=== PATIENT | female | born 1950 | race Caucasian/White ===

== ENCOUNTER 2016-07-19 18:02 | Emergency (ER) | payer BC ==
[~2016-07-19] VITALS: Ht 152.4 cm; Wt 55.2 kg
[2016-07-19 18:20] VITALS: TEMP 37.1; Ht 152.4 cm; Wt 55.2 kg
[2016-07-19] MEDS ORDERED: SODIUM CHLORIDE 0.9% 1000ML 1,000 ML IV STA (19:24)
[2016-07-19] MEDS ORDERED: KETOROLAC TROMETHAMINE 30 MG/ML VIAL IV STA (20:18)
[2016-07-19] MEDS ORDERED: DICYCLOMINE HCL 10 MG/ML 2 ML AMP IM ONE (20:30)
[2016-07-19 20:32] LABS: BASO % 0.2 %; BASO ABS # 0.02 K/uL (0-0.2); COMPLETE YES; EOS % 0.8 %; HEMATOCRIT 42.9 % (37-47); IG% 0.3 %; LYMPH % 22.7 %; MEAN CELL VOLUME 86.5 fL (80-100); MEAN CORPUSCULAR HEMOGLOBIN 29.4 pg (25-34); MEAN PLATELET VOLUME 9.9 fL (7.4-10.4); MONO % 6.5 %; NEUT % 69.5 %; PLATELET COUNT 281 K/uL (130-400); RED BLOOD COUNT 4.96 M/uL (4.2-5.4); WHITE BLOOD COUNT 10.57 K/uL (4.8-10.8)
--- NOTE | 2016-07-19 20:38 | EMERGENCY ROOM VISIT NOTE ---
History First contact with patient: 19:49 Chief Complaint: ABDOMINAL PAIN Stated Complaint: ABDOMINAL PAIN- PHYSICIAN REFERRED Nursing Triage Summary: Pt at doctor's office today and had an abdominal x-ray showing a "blockage.'' Pt sent here for a CT scan and eval. Pt hasn't had BM for 3 days and abnormal bowel movements for seven weeks. History of Present Illness The patient is a 65 year old female with Hx of 1 month of alternating diarrhea/ constipation who presents to the Emergency Room with abdominal pain. Patient complains of 24 hr hx of abdominal pain. Pain has been constant but comes with episodic waves of intensity ranging from 5-8/10. She also report associated nausea, chills dec's appetite. She went in to to [facility] clinic for evaluation and saw Dr. Pacheco. Initially, Dr. Pacheco was concerned about potential ovarian pathology and scheduled Trans-vaginal U/S for tmr, however after getting an abdominal XR, significant stool retention was noted. She was then sent over for ED for further evaluation. Review of Systems See HPI for pertinent positives & negatives. A total of 10 systems reviewed and were otherwise negative. Past Medical/Surgical History Medical Problems: (1) Asthma Surgical Problems: (1) S/P dilation and curettage (2) S/P hysterectomy (3) S/P tonsillectomy (4) S/P tubal ligation Social History Smoking Status: Never Smoker Marital Status: Housing Status: lives with family Current/Historical Medications Scheduled Budesonide/Formoterol Fumarate (Symbicort 160/4.5 Inhaler ), 2 PUFFS INH BID Calcium/Vitamin D (Os-Jong 500 Plus D), 1 TAB PO DAILY Levothyroxine Sodium (Levothyroxine Sodium), 1 TAB PO DAILY Multivitamin (Multivitamin), 1 TAB PO DAILY Scheduled PRN Sumatriptan Succinate (Imitrex), 100 MG PO PRN PRN for Migraine Allergies Coded Allergies: No Known Allergies (Unverified , 07/19/16) Physical Exam Vital Signs Date Time Temp Pulse Resp B/P Pulse Ox O2 Delivery O2 Flow Rate FiO2 07/19/16 23:21 106 20 102/84 96 Room Air 07/19/16 21:01 85 20 130/83 07/19/16 18:20 37.1 111 18 144/84 99 Room Air Physical Exam GENERAL: alert, well appearing, well nourished, no distress, non-toxic EYE EXAM: normal conjunctiva, PERRL and EOM's grossly intact NECK: supple, no nuchal rigidity, no adenopathy, non-tender LUNGS: Clear to auscultation. Normal chest wall mechanics HEART: no murmurs, S1 normal and S2 normal ABDOMEN: abdomen soft, LLQ tenderness to palpation, no guarding, no rigidity BACK: Back is symmetrical on inspection and there is no deformity, no midline tenderness, no CVA tenderness. SKIN: no rashes and no bruising UPPER EXTREMITIES: upper extremities are grossly normal. LOWER EXTREMITIES: No pitting edema. Medical Decision & Procedures ER Provider Diagnostic Interpretation: [~ rep ct add3]] ABDOMEN AND PELVIS CT WITHOUT CONTRAST CT DOSE: 259.81 mGy.cm HISTORY: lower abdominal pain, eval for obstruction TECHNIQUE: Multiaxial CT images of the abdomen and pelvis were performed without contrast. COMPARISON STUDY: KUB 07/19/2016. FINDINGS: The lung bases are clear. Small hiatus hernia. Small bilateral fat-containing Bochdalek hernias. The unenhanced liver, spleen, gallbladder, pancreas, and adrenal glands are unremarkable. No retroperitoneal lymphadenopathy. The uterus is surgically absent. A pessary device is noted. The bladder is not well-distended but appears unremarkable. No renal stones or hydronephrosis. Normal appendix. Trace pelvic free fluid. Suboptimal evaluation for bowel pathology due to the lack of intravenous and oral contrast. Moderate to large amount well-formed stool seen throughout the colon. A few colonic diverticula. No definite bowel wall thickening or obstruction. IMPRESSION: 1. No definite bowel wall thickening or obstruction. 2. Normal appendix. 3. Moderate to large amount of well-formed stool seen within the colon. Electronically signed by: Pilo Chaudhary M.D. 07/19/2016 9:04 PM Laboratory Results 07/19/16 20:20 Red Blood Count 4.96, Mean Corpuscular Volume 86.5, Mean Corpuscular Hemoglobin 29.4, Mean Corpuscular Hemoglobin Concent 34.0, Mean Platelet Volume 9.9, Neutrophils (%) (Auto) 69.5, Lymphocytes (%) (Auto) 22.7, Monocytes (%) (Auto) 6.5, Eosinophils (%) (Auto) 0.8, Basophils (%) (Auto) 0.2, Neutrophils # (Auto) 7.35, Lymphocytes # (Auto) 2.40, Monocytes # (Auto) 0.69, Eosinophils # (Auto) 0.08, Basophils # (Auto) 0.02 07/19/16 20:20 Test 07/19/16 20:20 White Blood Count 10.57 K/uL (4.8-10.8) Red Blood Count 4.96 M/uL (4.2-5.4) Hemoglobin 14.6 g/dL (12.0-16.0) Hematocrit 42.9 % (37-47) Mean Corpuscular Volume 86.5 fL (80-100) Mean Corpuscular Hemoglobin 29.4 pg (25-34) Mean Corpuscular Hemoglobin Concent 34.0 g/dl (32-36) Platelet Count 281 K/uL (130-400) Mean Platelet Volume 9.9 fL (7.4-10.4) Neutrophils (%) (Auto) 69.5 % Lymphocytes (%) (Auto) 22.7 % Monocytes (%) (Auto) 6.5 % Eosinophils (%) (Auto) 0.8 % Basophils (%) (Auto) 0.2 % Neutrophils # (Auto) 7.35 K/uL (1.4-6.5) Lymphocytes # (Auto) 2.40 K/uL (1.2-3.4) Monocytes # (Auto) 0.69 K/uL (0.11-0.59) Eosinophils # (Auto) 0.08 K/uL (0-0.5) Basophils # (Auto) 0.02 K/uL (0-0.2) RDW Standard Deviation 41.7 fL (36.4-46.3) RDW Coefficient of Variation 13.2 % (11.5-14.5) Immature Granulocyte % (Auto) 0.3 % Immature Granulocyte # (Auto) 0.03 K/uL (0.00-0.02) Anion Gap 11.0 mmol/L (3-11) Est Creatinine Clear Calc Drug Dose 45.7 ml/min Estimated GFR () 71.5 Estimated GFR (Non- 61.7 BUN/Creatinine Ratio 26.4 (10-20) Calcium Level 9.4 mg/dl (8.5-10.1) Total Bilirubin 0.7 mg/dl (0.2-1) Direct Bilirubin 0.1 mg/dl (0-0.2) Aspartate Amino Transf (AST/SGOT) 27 U/L (15-37) Alanine Aminotransferase (ALT/SGPT) 32 U/L (12-78) Alkaline Phosphatase 86 U/L (45-117) Total Protein 7.8 gm/dl (6.4-8.2) Albumin 3.7 gm/dl (3.4-5.0) Lipase 102 U/L (73-393) Medications Administered Medications (Trade) Dose Ordered Sig/Amanda Route Start Time Stop Time Status Last Admin Dose Admin Sodium Chloride (Nss 1000ml) 1,000 ml @ 125 mls/hr Q8H STAT IV 07/19/16 19:24 07/20/16 03:23 07/19/16 20:19 125 MLS/HR Ketorolac Tromethamine (Toradol Inj) 10 mg NOW STAT IV 07/19/16 20:18 07/19/16 20:20 DC 07/19/16 20:28 10 MG Dicyclomine HCl (Bentyl Inj) 20 mg NOW ONCE IM 07/19/16 20:30 07/19/16 20:31 DC 07/19/16 20:29 20 MG Fentanyl Citrate (Fentanyl Inj) 50 mcg NOW STAT IV 07/19/16 21:41 07/19/16 21:42 DC 07/19/16 22:08 50 MCG Ondansetron HCl (Zofran Inj) 4 mg NOW STAT IV 07/19/16 21:41 07/19/16 21:42 DC 07/19/16 22:08 4 MG Lorazepam (Ativan Inj) 0.5 mg NOW STAT IV 07/19/16 22:12 07/19/16 22:13 DC 07/19/16 22:33 0.5 MG Medical Decision Differential diagnoses includes but is not limited to gastritis, peptic ulcer disease, GERD, gallbladder disease, pancreatitis, small bowel obstruction, acute coronary syndrome, pericarditis, ischemic bowel, irritable bowel disease, irritable bowel syndrome, appendicitis, diverticulitis, malignancy, hernia, urinary tract infection, torsion, , perforation, trauma, infectious. 65 yo F with month long hx of alternating diarrhea/constipation p/w 24 hr hx of constant abdominal pain. afebrile, VSS, LLQ tenderness on exam. Previous abd xray today showing stool retention CT showing Moderate to large amount of well- formed stool seen within the colon. Constipation -Given 50mcg Fentanyl, IV Toradol 10 mg, 20 mg Bentyl -IV fluids 1L -Given Soap suds enema -Upon reevaluation, the patient is feeling better abdominal pain improved , but no significant BM in ED discussed the findings and the treatment plan with the patient. She verbalizes agreement and understanding. She was discharged home with PCP followup with Dr. Sanon -Discharged with Miralax, Mg Citrate Impression Primary Impression: Fecal impaction Additional Impression: Abdominal pain Departure Information Referrals Manuel Sanon MD (PCP) Patient Instructions My [facility] Resident Tracking Resident Involvement: Resident Care Provided Care Provided: Adult ED Problem Qualifiers Additional Impression: Abdominal pain Abdominal location: lower abdomen, unspecified Qualified Codes: R10.30 - Lower abdominal pain, unspecified
[2016-07-19 20:55] LABS: BUN/CREATININE RATIO 26.4 (10-20); CALCIUM 9.4 mg/dl (8.5-10.1); CREATININE 0.97 mg/dl (0.60-1.20); POTASSIUM 3.9 mmol/L (3.5-5.1)
--- NOTE | 2016-07-19 21:05 | DIAGNOSTIC IMAGING REPORT ---
ABDOMEN AND PELVIS CT WITHOUT CONTRAST CT DOSE: 259.81 mGy.cm HISTORY: lower abdominal pain, eval for obstruction TECHNIQUE: Multiaxial CT images of the abdomen and pelvis were performed without contrast. COMPARISON STUDY: KUB 07/19/2016. FINDINGS: The lung bases are clear. Small hiatus hernia. Small bilateral fat-containing Bochdalek hernias. The unenhanced liver, spleen, gallbladder, pancreas, and adrenal glands are unremarkable. No retroperitoneal lymphadenopathy. The uterus is surgically absent. A pessary device is noted. The bladder is not well-distended but appears unremarkable. No renal stones or hydronephrosis. Normal appendix. Trace pelvic free fluid. Suboptimal evaluation for bowel pathology due to the lack of intravenous and oral contrast. Moderate to large amount well-formed stool seen throughout the colon. A few colonic diverticula. No definite bowel wall thickening or obstruction. IMPRESSION: 1. No definite bowel wall thickening or obstruction. 2. Normal appendix. 3. Moderate to large amount of well-formed stool seen within the colon. Electronically signed by: Pilo Chaudhary M.D. 07/19/2016 9:04 PM Dictated Date/Time: 07/19/2016 8:54 PM
[2016-07-19] MEDS ORDERED: FENTANYL CITRATE INJ 50 MCG/1 ML 2 ML VIAL IV STA (21:41)
[2016-07-19] MEDS ORDERED: ONDANSETRON INJ 2 MG/ML 2 ML VIAL IV STA (21:41)
[2016-07-19] MEDS ORDERED: LORAZEPAM 2 MG/ML 1 ML VIAL IV STA (22:12)
[2016-07-19] MEDS ORDERED: MAGNESIUM CITRATE 296 ML/BTL PO STA (23:48)
--- NOTE | 2016-07-20 00:10 | EMERGENCY ROOM VISIT NOTE ---
History Report prepared by Annita: Kerline Omalley Under the Supervision of: Dr. Tristen Harrison M.D. First contact with patient: 19:23 Chief Complaint: ABDOMINAL PAIN Stated Complaint: ABDOMINAL PAIN- PHYSICIAN REFERRED Nursing Triage Summary: Pt at doctor's office today and had an abdominal x-ray showing a "blockage.'' Pt sent here for a CT scan and eval. Pt hasn't had BM for 3 days and abnormal bowel movements for seven weeks. History of Present Illness The patient is a 65 year old female who presents to the Emergency Room with complaints of waxing and waning abdominal pain that began one day ago. She currently rates her discomfort as a 6/10 in severity, but states that it has ranged between 5-8/10 in severity. The patient states that for the past month she has intermittently had problems with constipation and diarrhea alternatively. She states that her abdominal pain began 24 hours ago and additionally notes nausea and chills today. The patient additionally notes a decrease in appetite. She states that she went to a walk-in clinic today and had an abdominal x-ray done that showed fecal retention. The patient was sent to the emergency department today for a CT scan. Pt denies LOC, headache, fevers , diaphoresis, visual changes, neck pain, chest pain, breathing difficulties, vomiting, back pain, melena, hematochezia, urinary symptoms, numbness, weakness , lymphadenopathy, rash, or other complaints. Source of History: patient Onset: one day ago Position: abdomen Symptom Intensity: 5-8/10 Timing: waxes/wanes Associated Symptoms: + chills, + diarrhea, + nausea Note: Associated Symptoms: decrease in appetite, constipation Review of Systems See HPI for pertinent positives and negatives. A total of ten systems were reviewed and were otherwise negative. Past Medical & Surgical Medical Problems: (1) Asthma Surgical Problems: (1) S/P dilation and curettage (2) S/P hysterectomy (3) S/P tonsillectomy (4) S/P tubal ligation Family History Cancer Gallbladder disease Hypertension Social History Smoking Status: Never Smoker Smokeless Tobacco Use: No Alcohol Use: occasionally Marital Status: Housing Status: lives with significant other Occupation Status: retired Current/Historical Medications Scheduled Budesonide/Formoterol Fumarate (Symbicort 160/4.5 Inhaler ), 2 PUFFS INH BID Calcium/Vitamin D (Os-Jong 500 Plus D), 1 TAB PO DAILY Levothyroxine Sodium (Levothyroxine Sodium), 1 TAB PO DAILY Multivitamin (Multivitamin), 1 TAB PO DAILY Scheduled PRN Sumatriptan Succinate (Imitrex), 100 MG PO PRN PRN for Migraine Allergies Coded Allergies: No Known Allergies (Unverified , 07/19/16) Physical Exam Vital Signs Date Time Temp Pulse Resp B/P Pulse Ox O2 Delivery O2 Flow Rate FiO2 07/19/16 23:21 106 20 102/84 96 Room Air 07/19/16 21:01 85 20 130/83 07/19/16 18:20 37.1 111 18 144/84 99 Room Air Physical Exam GENERAL: Awake, alert, well-appearing, in no distress HENT: Normocephalic, atraumatic. Oropharynx unremarkable. EYES: Normal conjunctiva. Sclera non-icteric. NECK: Supple. No nuchal rigidity. FROM. No JVD. RESPIRATORY: Clear to auscultation. CARDIAC: Regular rate, normal rhythm. Extremities warm and well perfused. Pulses equal. ABDOMEN: Left lower quadrant tenderness to palpation. Soft, non-distended. No rebound or guarding. No masses. RECTAL: Deferred. MUSCULOSKELETAL: Chest examination reveals no tenderness. The back is symmetrical on inspection without obvious abnormality. There is no CVA tenderness to palpation. No joint edema. LOWER EXTREMITIES: Calves are equal size bilaterally and non-tender. No edema. No discoloration. NEURO: Normal sensorium. No sensory or motor deficits noted. SKIN: No rash or jaundice noted. Medical Decision & Procedures ER Provider Diagnostic Interpretation: CT: Radiology results as stated below per my review and radiologist interpretation ABDOMEN AND PELVIS CT WITHOUT CONTRAST CT DOSE: 259.81 mGy.cm HISTORY: lower abdominal pain, eval for obstruction TECHNIQUE: Multiaxial CT images of the abdomen and pelvis were performed without contrast. COMPARISON STUDY: KUB 07/19/2016. FINDINGS: The lung bases are clear. Small hiatus hernia. Small bilateral fat-containing Bochdalek hernias. The unenhanced liver, spleen, gallbladder, pancreas, and adrenal glands are unremarkable. No retroperitoneal lymphadenopathy. The uterus is surgically absent. A pessary device is noted. The bladder is not well-distended but appears unremarkable. No renal stones or hydronephrosis. Normal appendix. Trace pelvic free fluid. Suboptimal evaluation for bowel pathology due to the lack of intravenous and oral contrast. Moderate to large amount well-formed stool seen throughout the colon. A few colonic diverticula. No definite bowel wall thickening or obstruction. IMPRESSION: 1. No definite bowel wall thickening or obstruction. 2. Normal appendix. 3. Moderate to large amount of well-formed stool seen within the colon. Electronically signed by: Pilo Chaudhary M.D. 07/19/2016 9:04 PM Dictated Date/Time: 07/19/2016 8:54 PM Laboratory Results 07/19/16 20:20 Red Blood Count 4.96, Mean Corpuscular Volume 86.5, Mean Corpuscular Hemoglobin 29.4, Mean Corpuscular Hemoglobin Concent 34.0, Mean Platelet Volume 9.9, Neutrophils (%) (Auto) 69.5, Lymphocytes (%) (Auto) 22.7, Monocytes (%) (Auto) 6.5, Eosinophils (%) (Auto) 0.8, Basophils (%) (Auto) 0.2, Neutrophils # (Auto) 7.35, Lymphocytes # (Auto) 2.40, Monocytes # (Auto) 0.69, Eosinophils # (Auto) 0.08, Basophils # (Auto) 0.02 07/19/16 20:20 Test 07/19/16 20:20 White Blood Count 10.57 K/uL (4.8-10.8) Red Blood Count 4.96 M/uL (4.2-5.4) Hemoglobin 14.6 g/dL (12.0-16.0) Hematocrit 42.9 % (37-47) Mean Corpuscular Volume 86.5 fL (80-100) Mean Corpuscular Hemoglobin 29.4 pg (25-34) Mean Corpuscular Hemoglobin Concent 34.0 g/dl (32-36) Platelet Count 281 K/uL (130-400) Mean Platelet Volume 9.9 fL (7.4-10.4) Neutrophils (%) (Auto) 69.5 % Lymphocytes (%) (Auto) 22.7 % Monocytes (%) (Auto) 6.5 % Eosinophils (%) (Auto) 0.8 % Basophils (%) (Auto) 0.2 % Neutrophils # (Auto) 7.35 K/uL (1.4-6.5) Lymphocytes # (Auto) 2.40 K/uL (1.2-3.4) Monocytes # (Auto) 0.69 K/uL (0.11-0.59) Eosinophils # (Auto) 0.08 K/uL (0-0.5) Basophils # (Auto) 0.02 K/uL (0-0.2) RDW Standard Deviation 41.7 fL (36.4-46.3) RDW Coefficient of Variation 13.2 % (11.5-14.5) Immature Granulocyte % (Auto) 0.3 % Immature Granulocyte # (Auto) 0.03 K/uL (0.00-0.02) Anion Gap 11.0 mmol/L (3-11) Est Creatinine Clear Calc Drug Dose 45.7 ml/min Estimated GFR () 71.5 Estimated GFR (Non- 61.7 BUN/Creatinine Ratio 26.4 (10-20) Calcium Level 9.4 mg/dl (8.5-10.1) Total Bilirubin 0.7 mg/dl (0.2-1) Direct Bilirubin 0.1 mg/dl (0-0.2) Aspartate Amino Transf (AST/SGOT) 27 U/L (15-37) Alanine Aminotransferase (ALT/SGPT) 32 U/L (12-78) Alkaline Phosphatase 86 U/L (45-117) Total Protein 7.8 gm/dl (6.4-8.2) Albumin 3.7 gm/dl (3.4-5.0) Lipase 102 U/L (73-393) Laboratory results reviewed by me Medications Administered Medications (Trade) Dose Ordered Sig/Amanda Route Start Time Stop Time Status Last Admin Dose Admin Sodium Chloride (Nss 1000ml) 1,000 ml @ 125 mls/hr Q8H STAT IV 07/19/16 19:24 07/20/16 03:23 07/19/16 20:19 125 MLS/HR Ketorolac Tromethamine (Toradol Inj) 10 mg NOW STAT IV 07/19/16 20:18 07/19/16 20:20 DC 07/19/16 20:28 10 MG Dicyclomine HCl (Bentyl Inj) 20 mg NOW ONCE IM 07/19/16 20:30 07/19/16 20:31 DC 07/19/16 20:29 20 MG Fentanyl Citrate (Fentanyl Inj) 50 mcg NOW STAT IV 07/19/16 21:41 07/19/16 21:42 DC 07/19/16 22:08 50 MCG Ondansetron HCl (Zofran Inj) 4 mg NOW STAT IV 07/19/16 21:41 07/19/16 21:42 DC 07/19/16 22:08 4 MG Lorazepam (Ativan Inj) 0.5 mg NOW STAT IV 07/19/16 22:12 07/19/16 22:13 DC 07/19/16 22:33 0.5 MG ED Course 1923: The patient was evaluated in room B5. A complete history and physical exam was performed by the family services manager. Ordered Sodium chloride 1000 ml @ 125 mls/hr IV. 2014: The patient was evaluated in room B5. A complete history and physical exam was performed. 2017: Ordered Toradol Inj 10 mg IV. 2029: Ordered Bentyl Inj 20 mg IM. 2139: I reevaluated the patient and she is resting. I discussed the exam findings with her and I discussed the treatment plan. She is going to have an enema. 2140: Ordered Zofran Inj 4 mg IV, Fentanyl Inj 50 mcg IV. 2211: Ordered Ativan Inj 0.5 mg IV. Medical Decision Prior records/ancillary studies reviewed. Triage Nursing notes reviewed and agree them. Additional history obtained from her . The patient's history was concerning for constipation. Differential diagnosis: Etiologies such as functional constipation, impaction, obstruction, volvulus, metabolic abnormality, infection, neurologic, as well as others were entertained. Physical examination findings: As above. ER treatment provided: IV Toradol IM Bentyl IV fentanyl IV Zofran On reassessment the patient felt better. IV Ativan enema 2 with no significant results are the patient cannot hold water. Diagnostics interpreted by me: The labs revealed An unremarkable cc, chemistry panel, LFTs and lipase. Imaging studies: CT scan as above The patient has significant increased fecal load. She notes issues with bowel movements over the last several weeks. Enemas were tried but she was unable to hold the fluid for maximum result. I discussed trying to use magnesium citrate and MiraLAX at home for comfort and the patient and were in agreement. She was given magnesium citrate to go. The patient was seen and examined with Dr. Lino, resident physician. We discussed the case and treatments ordered, reviewed the results, and determine the disposition. Please refer to the resident's note for additional details. I have been directly involved with the management and disposition as well as independently evaluated the patient as documented in this note. The patient did not give a urine sample prior to discharge. By the evaluation outlined above emergent etiologies such as obstruction, volvulus, metabolic abnormality, infection , neurologic, as well as others were deemed relatively unlikely. The patient and were informed about the findings as listed above. All questions were answered and they were pleased with the treatment. Return instructions were outlined and the patient was discharged in stable condition. Referral: The patient was referred back to their primary care physician for follow-up in 2 to 3 days for a recheck of the current condition. The chart was completed utilizing [employer] Speech voice recognition software. Grammatical errors, random word insertions, pronoun errors, and incomplete sentences are an occasional consequence of this system due to software limitations, ambient noise, and hardware issues. Any formal questions or concerns about the content, text, or information contained within the body of this dictation should be directly addressed to the physician for clarification. Impression Primary Impression: Abdominal pain, left lower quadrant Additional Impression: Constipation Scribe Attestation The scribe's documentation has been prepared under my direction and personally reviewed by me in its entirety. I confirm that the note above accurately reflects all work, treatment, procedures, and medical decision making performed by me. Departure Information Dispostion Home / Self-Care Referrals Manuel Sanon MD (PCP) Forms HOME CARE DOCUMENTATION FORM, IMPORTANT VISIT INFORMATION Patient Instructions ED Diet High Fiber, My [facility] Additional Instructions Magnesium citrate, 1/2 bottle for constipation. If you don't have a good bowel movement in 8 hrs then drink the other half. This is available over-the- counter. Rest and drink plenty of fluids. Fleets enema: Use one as instructed. Increase fiber in your diet. Return to the ER for worsening abdominal pain, vomiting, fevers, bloody stools, or as needed. Follow-up with your primary care physician in 2 to 3 days for a recheck of your current condition. Problem Qualifiers
[2016-07-20 00:21] VITALS: BP 129/79; PULSE 98; O2SAT 98
[2016-07-21] MEDS ORDERED: MINEOIL26 PO (15:00)
[2016-07-21] MEDS ORDERED: POLY335019 PO (15:00)
[2016-07-21] MEDS ORDERED: CALC500C70 PO (19:54)
[2016-07-21] MEDS ORDERED: MULT-506 PO (19:54)
[2016-07-21] MEDS ORDERED: LEVO88TA3 PO (19:54)
[2016-07-21] MEDS ORDERED: SYMIN160 INH (19:54)
[2016-07-21] MEDS ORDERED: SUMA100T16 PO (19:54)
[2016-07-21] MEDS ORDERED: DICY10CA12 PO (21:01)
[2016-07-22] MEDS ORDERED: ESTR10TA PV (12:38)
[2016-07-23] MEDS ORDERED: MCRK20 PO (15:12)
[2016-07-23] MEDS ORDERED: POLY335019 PO (15:12)
== END 2016-07-20 00:23 | disposition home or self-care (01) ==
LOC: C.EDB 18:03
DX: R10.32 Left lower quadrant pain (principal); K59.00 Constipation, unspecified; J45.909 Unspecified asthma, uncomplicated; Z80.9 Family history of malignant neoplasm, unspecified; Z83.79 Family history of other diseases of the digestive system; Z82.49 Family history of ischemic heart disease and other diseases of the circulatory system; Z79.899 Other long term (current) drug therapy

== ENCOUNTER → 2016-07-19 | Outpatient (CLI) | payer BC ==
[~2016-07-19] MED LIST: CALC500C70 PO; DICY10CA12 PO; ESTR10TA PV; LEVO88TA3 PO; MCRK20 PO; MINEOIL26 PO; MULT-506 PO; POLY335019 PO; SUMA100T16 PO; SYMIN160 INH
--- NOTE | 2016-07-19 10:06 | DIAGNOSTIC IMAGING REPORT ---
KUB CLINICAL HISTORY: Abdominal pain and bloating COMPARISON STUDY: No previous studies for comparison. FINDINGS: There is no pathologic bowel dilatation. There are no transition zones indicate bowel obstruction. There is moderate fecal retention. A pessary ring is visualized within the pelvis. IMPRESSION: 1. Moderate fecal retention. No conventional radiographic evidence of bowel obstruction. Electronically signed by: Bryant Canchola M.D. 07/19/2016 10:05 AM Dictated Date/Time: 07/19/2016 10:04 AM
== END | disposition home or self-care (01) ==
LOC: C.RAD1850 09:41
PROVIDERS: ATTEND Family Medicine
DX: K59.00 Constipation, unspecified (principal)

== ENCOUNTER 2016-07-21 13:21 | Emergency (ER) | payer BC ==
[~2016-07-21] VITALS: Ht 152.4 cm; Wt 55.6 kg
[2016-07-21 13:30] VITALS: TEMP 37.1; Ht 152.4 cm; Wt 55.6 kg
[2016-07-21] MEDS ORDERED: ONDANSETRON INJ 2 MG/ML 2 ML VIAL IV STA (14:43)
[2016-07-21] MEDS ORDERED: HYDROmorphone INJ 0.5 MG/0.5 ML SYR IV STA ×2 (14:43→18:54)
[2016-07-21] MEDS ORDERED: SODIUM CHLORIDE 0.9% 1000ML 1,000 ML IV STA ×2 (14:43→19:37)
[2016-07-21] MEDS ORDERED: MINEOIL26 PO (15:00)
[2016-07-21] MEDS ORDERED: POLY335019 PO (15:00)
[2016-07-21] MEDS ORDERED: OPTIRAY 320 IV PRN (15:00)
[2016-07-21 15:13] LABS: BASO % 0.2 %; BASO ABS # 0.02 K/uL (0-0.2); COMPLETE YES; EOS % 1.2 %; HEMATOCRIT 41.5 % (37-47); IG% 0.3 %; LYMPH ABS # 2.31 K/uL (1.2-3.4); MEAN CORPUSCULAR HGB CONC 34.5 g/dl (32-36); MEAN PLATELET VOLUME 9.7 fL (7.4-10.4); MONO % 6.5 %; NEUT % 71.8 %; PLATELET COUNT 272 K/uL (130-400); RED BLOOD COUNT 4.77 M/uL (4.2-5.4); WHITE BLOOD COUNT 11.57 K/uL (4.8-10.8)
[2016-07-21 15:34] LABS: ALKALINE PHOSPHATASE 75 U/L (45-117); ALT/SGPT 24 U/L (12-78); AST/SGOT 19 U/L (15-37); BLOOD UREA NITROGEN 11 mg/dl (7-18); BUN/CREATININE RATIO 16.4 (10-20); CARBON DIOXIDE 26 mmol/L (21-32); CHLORIDE 103 mmol/L (98-107); CREATININE 0.67 mg/dl (0.60-1.20); GLUCOSE 94 mg/dl (70-99); POTASSIUM 4.1 mmol/L (3.5-5.1); SODIUM 139 mmol/L (136-145)
[2016-07-21 16:01] LABS: URINE APPEARANCE CLOUDY (CLEAR); URINE BILIRUBIN NEG (NEG); URINE COLOR YELLOW; URINE NITRITE NEG (NEG); URINE SPECIFIC GRAVITY 1.006 (1.000-1.030); UROBILINOGEN NEG (NEG); ZZUR CULT IF INDIC CLEAN CATCH NO
[2016-07-21 16:04] LABS: MANUAL MICROSCOPIC REQUIRED? NO; REVIEW REQ? NO
--- NOTE | 2016-07-21 17:59 | DIAGNOSTIC IMAGING REPORT ---
CT SCAN OF THE ABDOMEN AND PELVIS WITH IV CONTRAST CLINICAL HISTORY: Left lower quadrant abdominal pain. Constipation. COMPARISON STUDY: Abdominal CT dated 07/19/2016. TECHNIQUE: Following the IV administration of 93 cc of Optiray 320, CT scan of the abdomen and pelvis is performed from the lung bases to the proximal femora. Images are reviewed in the axial, sagittal, and coronal planes. IV contrast was administered without complication. Automated dose control exposure was utilized. CT DOSE: 276.44 mGy.cm FINDINGS: Lung bases: The heart is normal in size and without pericardial effusion. A fat-containing Bochdalek hernia is seen at the left lung base. There is significant dependent atelectasis. No airspace consolidation is identified typical for pneumonia and there is no pleural effusion. A tiny hiatal hernia is identified. Liver: The contrast-enhanced liver is normal in size, contour, and attenuation. There is no intrahepatic biliary ductal dilatation. The hepatic veins and portal veins are patent. Gallbladder: Unremarkable. Spleen: Normal in size and attenuation. Pancreas: Unremarkable. Adrenal glands: Unremarkable. Kidneys: The contrast enhanced kidneys are normal in size and without hydronephrosis. The kidneys enhance symmetrically. Abdominal vasculature: The abdominal aorta is normal in course and caliber. Bowel: There is no bowel obstruction. The colon is distended and filled with stool. There is mild diffuse colonic wall thickening with pericolonic inflammation. This is greatest in the left colon. The appearance is consistent with a nonspecific colitis, likely representing stercoral colitis. The cecum measures up to 7 cm in diameter. The appendix is well-visualized and normal. Peritoneum: There is no intraperitoneal free air or abdominal ascites. Lymphadenopathy: None. Pelvic viscera: The bladder is normal as visualized. The uterus is surgically absent. No adnexal lesion is seen. There is a small volume of free fluid in the pelvis. A vaginal pessary is in place. Skeletal structures: The skeletal structures are osteopenic. A hemangioma is noted in the body of L4. No lytic or blastic lesions are seen. IMPRESSION: 1. There is moderate to severe constipation throughout the distended colon, and there is evidence of a nonspecific colitis. This is greatest in the left colon and likely represents stercoral colitis. Clinical correlation will be required. This has worsened from 07/19/2016. 2. A small volume of free fluid in the pelvis is likely on a reactive basis. 3. Additional findings as above. Electronically signed by: Preet Celaya M.D. 07/21/2016 5:58 PM Dictated Date/Time: 07/21/2016 5:52 PM
--- NOTE | 2016-07-21 19:37 | EMERGENCY ROOM VISIT NOTE ---
History Report prepared by Annita: Tegan Fournier Under the Supervision of: Dr. Tristen Harrison M.D. First contact with patient: 14:29 Chief Complaint: CONSTIPATION Stated Complaint: DIAGNOSED WITH BOWEL BLOCKAGE Nursing Triage Summary: Triage note: pt reports "i have been diagnosed with fecal impaction and i can't get an appt with gi until tomorrow and i have a lot of pain." pt reports last bm 1 week ago. pt reports she was seen in ed on monday for same. History of Present Illness The patient is a 65 year old female who presents to the Emergency Room with complaints of waxing and waning abdominal pain which started over 1 week ago. The pain is most severe in the LLQ. She rates her discomfort as a 10/10 in severity at worst. The patient was seen in the ED a few days ago and the CT scan found a lot of stool, but no infection. She had 2 enemas, but experienced no relief. She was sent home with magnesium citrate and miralax, but has only been able to produce a small amount of stool. She visited the [place] [facility] and was told to try miralax and mineral oil. She presents to the ED after still experiencing abdominal pain. She reports that pain has not improved at all since her last visit and spikes every 10 minutes. She has not been eating or drinking normally. Pt denies LOC, headache, fevers, chills, diaphoresis, visual changes, neck pain, chest pain, breathing difficulties, nausea, vomiting, back pain, melena, hematochezia, urinary symptoms, numbness, weakness, lymphadenopathy, rash, or other complaints. Source of History: patient Onset: over 1 week ago Position: abdomen (LLQ) Symptom Intensity: 10/10 at worst Timing: waxes/wanes Note: Pt reports constipation. Review of Systems See HPI for pertinent positives and negatives. A total of ten systems were reviewed and were otherwise negative. Past Medical & Surgical Medical Problems: (1) Asthma Surgical Problems: (1) S/P dilation and curettage (2) S/P hysterectomy (3) S/P tonsillectomy (4) S/P tubal ligation Family History Cancer Gallbladder disease Hypertension Social History Smoking Status: Never Smoker Alcohol Use: occasionally Marital Status: Housing Status: lives with significant other Occupation Status: retired Current/Historical Medications Scheduled Budesonide/Formoterol Fumarate (Symbicort 160/4.5 Inhaler ), 2 PUFFS INH BID Calcium/Vitamin D (Os-Jong 500 Plus D), 1 TAB PO DAILY Levothyroxine Sodium (Levothyroxine Sodium), 1 TAB PO DAILY Mineral Oil (Mineral Oil), 1 DOSE PO PRN Multivitamin (Multivitamin), 1 TAB PO DAILY Scheduled PRN Dicyclomine Hcl (Dicyclomine Hcl), 1 CAP PO Q6H PRN for cramping Polyethylene Glycol 3350 (Miralax), 17 GM PO DAILY PRN for Constipation Sumatriptan Succinate (Imitrex), 100 MG PO PRN PRN for Migraine Allergies Coded Allergies: No Known Allergies (Unverified , 07/19/16) Physical Exam Vital Signs Date Time Temp Pulse Resp B/P Pulse Ox O2 Delivery O2 Flow Rate FiO2 07/21/16 20:53 94 18 131/71 97 Room Air 07/21/16 18:53 86 18 125/81 98 Room Air 07/21/16 17:12 92 18 127/86 100 Room Air 07/21/16 15:14 96 07/21/16 15:12 98 16 135/87 100 Room Air 07/21/16 13:30 37.1 114 18 148/64 99 Room Air Physical Exam GENERAL: Awake, alert, uncomfortable-appearing, in no distress HENT: Normocephalic, atraumatic. Oropharynx unremarkable. EYES: Normal conjunctiva. Sclera non-icteric. NECK: Supple. No nuchal rigidity. FROM. No JVD. RESPIRATORY: Clear to auscultation. CARDIAC: Borderline tachycardic rate, normal rhythm. Extremities warm and well perfused. Pulses equal. ABDOMEN: Soft, non-distended. Minimal RLQ and mostly LLQ tenderness to palpation. No rebound or guarding. No masses. RECTAL: Deferred. MUSCULOSKELETAL: Chest examination reveals no tenderness. The back is symmetrical on inspection without obvious abnormality. There is no CVA tenderness to palpation. No joint edema. LOWER EXTREMITIES: Calves are equal size bilaterally and non-tender. No edema. No discoloration. NEURO: Normal sensorium. No sensory or motor deficits noted. SKIN: No rash or jaundice noted. Medical Decision & Procedures ER Provider Diagnostic Interpretation: Radiology results as stated below per my review and radiologist interpretation CT SCAN OF THE ABDOMEN AND PELVIS WITH IV CONTRAST CLINICAL HISTORY: Left lower quadrant abdominal pain. Constipation. COMPARISON STUDY: Abdominal CT dated 07/19/2016. TECHNIQUE: Following the IV administration of 93 cc of Optiray 320, CT scan of the abdomen and pelvis is performed from the lung bases to the proximal femora. Images are reviewed in the axial, sagittal, and coronal planes. IV contrast was administered without complication. Automated dose control exposure was utilized. CT DOSE: 276.44 mGy.cm FINDINGS: Lung bases: The heart is normal in size and without pericardial effusion. A fat-containing Bochdalek hernia is seen at the left lung base. There is significant dependent atelectasis. No airspace consolidation is identified typical for pneumonia and there is no pleural effusion. A tiny hiatal hernia is identified. Liver: The contrast-enhanced liver is normal in size, contour, and attenuation. There is no intrahepatic biliary ductal dilatation. The hepatic veins and portal veins are patent. Gallbladder: Unremarkable. Spleen: Normal in size and attenuation. Pancreas: Unremarkable. Adrenal glands: Unremarkable. Kidneys: The contrast enhanced kidneys are normal in size and without hydronephrosis. The kidneys enhance symmetrically. Abdominal vasculature: The abdominal aorta is normal in course and caliber. Bowel: There is no bowel obstruction. The colon is distended and filled with stool. There is mild diffuse colonic wall thickening with pericolonic inflammation. This is greatest in the left colon. The appearance is consistent with a nonspecific colitis, likely representing stercoral colitis. The cecum measures up to 7 cm in diameter. The appendix is well-visualized and normal. Peritoneum: There is no intraperitoneal free air or abdominal ascites. Lymphadenopathy: None. Pelvic viscera: The bladder is normal as visualized. The uterus is surgically absent. No adnexal lesion is seen. There is a small volume of free fluid in the pelvis. A vaginal pessary is in place. Skeletal structures: The skeletal structures are osteopenic. A hemangioma is noted in the body of L4. No lytic or blastic lesions are seen. IMPRESSION: 1. There is moderate to severe constipation throughout the distended colon, and there is evidence of a nonspecific colitis. This is greatest in the left colon and likely represents stercoral colitis. Clinical correlation will be required. This has worsened from 07/19/2016. 2. A small volume of free fluid in the pelvis is likely on a reactive basis. 3. Additional findings as above. Electronically signed by: Preet Celaya M.D. 07/21/2016 5:58 PM Dictated Date/Time: 07/21/2016 5:52 PM Laboratory Results 07/21/16 14:55 Red Blood Count 4.77, Mean Corpuscular Volume 87.0, Mean Corpuscular Hemoglobin 30.0, Mean Corpuscular Hemoglobin Concent 34.5, Mean Platelet Volume 9.7, Neutrophils (%) (Auto) 71.8, Lymphocytes (%) (Auto) 20.0, Monocytes (%) (Auto) 6.5, Eosinophils (%) (Auto) 1.2, Basophils (%) (Auto) 0.2, Neutrophils # (Auto) 8.32, Lymphocytes # (Auto) 2.31, Monocytes # (Auto) 0.75, Eosinophils # (Auto) 0.14, Basophils # (Auto) 0.02 07/21/16 14:55 Test 07/21/16 14:55 07/21/16 15:40 White Blood Count 11.57 K/uL (4.8-10.8) Red Blood Count 4.77 M/uL (4.2-5.4) Hemoglobin 14.3 g/dL (12.0-16.0) Hematocrit 41.5 % (37-47) Mean Corpuscular Volume 87.0 fL (80-100) Mean Corpuscular Hemoglobin 30.0 pg (25-34) Mean Corpuscular Hemoglobin Concent 34.5 g/dl (32-36) Platelet Count 272 K/uL (130-400) Mean Platelet Volume 9.7 fL (7.4-10.4) Neutrophils (%) (Auto) 71.8 % Lymphocytes (%) (Auto) 20.0 % Monocytes (%) (Auto) 6.5 % Eosinophils (%) (Auto) 1.2 % Basophils (%) (Auto) 0.2 % Neutrophils # (Auto) 8.32 K/uL (1.4-6.5) Lymphocytes # (Auto) 2.31 K/uL (1.2-3.4) Monocytes # (Auto) 0.75 K/uL (0.11-0.59) Eosinophils # (Auto) 0.14 K/uL (0-0.5) Basophils # (Auto) 0.02 K/uL (0-0.2) RDW Standard Deviation 42.0 fL (36.4-46.3) RDW Coefficient of Variation 13.1 % (11.5-14.5) Immature Granulocyte % (Auto) 0.3 % Immature Granulocyte # (Auto) 0.03 K/uL (0.00-0.02) Anion Gap 10.0 mmol/L (3-11) Est Creatinine Clear Calc Drug Dose 66.3 ml/min Estimated GFR () 107.7 Estimated GFR (Non- 92.9 BUN/Creatinine Ratio 16.4 (10-20) Calcium Level 9.0 mg/dl (8.5-10.1) Total Bilirubin 0.5 mg/dl (0.2-1) Direct Bilirubin < 0.1 mg/dl (0-0.2) Aspartate Amino Transf (AST/SGOT) 19 U/L (15-37) Alanine Aminotransferase (ALT/SGPT) 24 U/L (12-78) Alkaline Phosphatase 75 U/L (45-117) Total Protein 7.3 gm/dl (6.4-8.2) Albumin 3.4 gm/dl (3.4-5.0) Lipase 110 U/L (73-393) Urine Color YELLOW Urine Appearance CLOUDY (CLEAR) Urine pH 8.0 (4.5-7.5) Urine Specific [place] 1.006 (1.000-1.030) Urine Protein NEG (NEG) Urine Glucose (UA) NEG (NEG) Urine Ketones 2+ (NEG) Urine Occult Blood NEG (NEG) Urine Nitrite NEG (NEG) Urine Bilirubin NEG (NEG) Urine Urobilinogen NEG (NEG) Urine Leukocyte Esterase TRACE (NEG) Urine WBC (Auto) 1-5 /hpf (0-5) Urine RBC (Auto) 0-4 /hpf (0-4) Urine Hyaline Casts (Auto) 0 /lpf (0-5) Urine Epithelial Cells (Auto) 5-10 /lpf (0-5) Urine Bacteria (Auto) NEG (NEG) Laboratory results reviewed by me Medications Administered Medications (Trade) Dose Ordered Sig/Amanda Route Start Time Stop Time Status Last Admin Dose Admin Hydromorphone HCl (Dilaudid Inj) 0.5 mg NOW STAT IV 07/21/16 14:43 07/21/16 14:55 DC 07/21/16 15:12 0.5 MG Ondansetron HCl 4 mg 4 mg NOW STAT IV 07/21/16 14:43 07/21/16 14:55 DC 07/21/16 15:11 4 MG Sodium Chloride (Nss 1000ml) 1,000 ml @ 999 mls/hr Q1H1M STAT IV 07/21/16 14:43 07/21/16 15:43 DC 07/21/16 15:11 999 MLS/HR Hydromorphone HCl 0.5 mg 0.5 mg NOW STAT IV 07/21/16 18:54 07/21/16 18:55 DC 07/21/16 18:59 0.5 MG Sodium Chloride (Nss 1000ml) 1,000 ml @ 999 mls/hr Q1H1M STAT IV 07/21/16 19:37 07/21/16 20:37 DC 07/21/16 19:44 999 MLS/HR Polyethylene Glycol/ Electrolytes (Golytely Soln) 1 dose TODAY@2029 ONCE PO 07/21/16 20:30 07/21/16 20:31 DC 07/21/16 20:59 1 DOSE ED Course 1438: The patient was evaluated in room B12. A complete history and physical exam was performed. 1443: NSS 1000 ml @ 999 mls/hr IV, Zofran Inj 4 mg IV, Dilaudid Inj 0.5 mg IV. 1601: I reevaluated the patient. She is feeling better. She is getting ready to go to CT. 1821: I reevaluated the patient. She has some pain, but does not want any pain medication. I discussed the test results and treatment plan with her. The patient will be evaluated for further management. 1824: I discussed the patient's case with Dr. Shi Storm, [facility] - hospitalist. The patient will be evaluated for further treatment and disposition. 1854: Dilaudid Inj 0.5 mg IV. The patient requested more medications for her pain. 2048: Dr. Helms and Dr. Storm have decided to discharge the patient with a Golytely prep as the patient would prefer to go home. 2050: I reevaluated the patient. She is resting comfortably. I discussed results and discharge instructions: she verbalized understanding and agreement. The patient is ready for discharge. Medical Decision Prior records/ancillary studies reviewed. Triage Nursing notes reviewed and agree them. Additional history obtained from her . The patient's history was concerning for constipation and abdominal pain. Differential diagnosis: Etiologies such as functional constipation, impaction, colitis, obstruction, volvulus, metabolic abnormality, infection, neurologic, as well as others were entertained. Physical examination findings: As above. ER treatment provided: IV normal saline, IV Dilaudid IV Zofran On reassessment the patient felt better. Diagnostics interpreted by me: The labs revealed a mild leukocytosis on CBC. Chemistry panel, LFTs, lipase and urinalysis were unremarkable. Imaging studies: CT scan as above The patient has severe constipation and associated colitis. Consultation: A consultation was placed with the hospitalist, Dr. Abner Helms and Dr. Shi Storm of the [facility] hospitalist service. The case was discussed. The patient was evaluated in the Emergency Room for further treatment. After they discussed treatment with the patient including observation in the hospital the patient and preferred to try treatment at home. The internal medicine team ordered GoLYTELY and Bentyl. I did encourage the patient to have a low threshold for coming back, especially with increasing pain, fever, or vomiting. I also instructed her to watch out for bloody stools. She has a gastroenterology follow-up tomorrow morning at 10 AM. I instructed her to continue this scheduled appointment. I gave my usual and customary discussion regarding this issue. The chart was completed utilizing [employer] Speech voice recognition software. Grammatical errors, random word insertions, pronoun errors, and incomplete sentences are an occasional consequence of this system due to software limitations, ambient noise, and hardware issues. Any formal questions or concerns about the content, text, or information contained within the body of this dictation should be directly addressed to the physician for clarification. Consults Time Called: 1820 Consulting Physician: Dr. Shi Storm, [facility] - hospitalist Returned Call: 1823 Discussed the patient's case. The patient will be evaluated for further treatment and disposition. Impression Primary Impression: Colitis Additional Impressions: Left sided abdominal pain Constipation Scribe Attestation The scribe's documentation has been prepared under my direction and personally reviewed by me in its entirety. I confirm that the note above accurately reflects all work, treatment, procedures, and medical decision making performed by me. Departure Information Dispostion Home / Self-Care (discharge by internal medicine) Prescriptions Dicyclomine Hcl (DICYCLOMINE HCL) 10 Mg Cap 1 CAP PO Q6H Y for cramping for 5 Days, #20 CAP 3 Refills Prov: Shi Storm MD 07/21/16 Referrals Manuel Sanon MD (PCP) Forms HOME CARE DOCUMENTATION FORM, IMPORTANT VISIT INFORMATION Patient Instructions My [facility] Additional Instructions Follow all instructions given to you by Dr. Shi Storm and Dr. Abner Helms from internal medicine regarding the GoLYTELY. Return to the ER for worsening abdominal pain, vomiting, fevers, bloody stools, or as needed. Follow-up with GI tomorrow as scheduled Problem Qualifiers
[2016-07-21] MEDS ORDERED: SUMA100T16 PO ×2 (19:54)
[2016-07-21] MEDS ORDERED: SYMIN160 INH ×2 (19:54)
[2016-07-21] MEDS ORDERED: LEVO88TA3 PO ×2 (19:54)
[2016-07-21] MEDS ORDERED: CALC500C70 PO ×2 (19:54)
[2016-07-21] MEDS ORDERED: MULT-506 PO ×2 (19:54)
[2016-07-21] MEDS ORDERED: LAVAGE SOLUTION 4000ML PO ONE (20:30)
[2016-07-21 20:53] VITALS: BP 131/71; PULSE 94; O2SAT 97
--- NOTE | 2016-07-21 20:59 | Medical Consult ---
Consultation Date of Consultation: Jul 21, 2016. Attending Physician: Dr Helms Reason for Consultation: Constipation management History of Present Illness Katja Goss is a 65 year old female with asthma who presents with changes in bowel habit over the last month. She reports it started in June when she was in [place], and she was alternating between constipation and diarrhea. She had a Z pack for a URI which did not change her stool habit. She was getting occasional abdominal pain and cramping so went to an urgent care in [place], who said she needed to change her diet. Upon returning, the pain was still occuring and she was more often constipated. She occasionally would have overflow incontinence but this was rarely. She did not have any blood or mucus in the stool. She went to her PCPs office Monday and was sent here from there, and was taking daily Miralax and mineral oil. She had a fleet enema and still did not pass stool. The pain was persistent so she returned today for evaluation. She had a CT scan which showed stercoral colitis. She was given dilaudid at both ED visits as well. She reports the pain has improved from that. She has an appt with Jessica Antonio of GI tomorrow. Past Medical/Surgical History Medical Problems: (1) Abdominal pain Status: Acute (2) Abdominal pain, left lower quadrant Status: Acute (3) Colitis Status: Acute (4) Constipation Status: Acute (5) Constipation Status: Acute (6) Fecal impaction Status: Acute (7) Left sided abdominal pain Status: Acute Family History Cancer Gallbladder disease Hypertension Social History Smoking Status: Never Smoker Marital Status: Housing Status: lives with significant other Occupation Status: retired Allergies Coded Allergies: No Known Allergies (Unverified , 07/19/16) Current Inpatient Medications Current Inpatient Medications Medications (Trade) Dose Ordered Sig/Amanda Route Start Time Stop Time Status Last Admin Dose Admin Ioversol (Optiray 320) 125 ml UD PRN IV 07/21/16 15:00 07/25/16 14:59 Review of Systems See HPI for pertinent positives & negatives. A total of 10 systems reviewed and were otherwise negative. Physical Exam Date Time Temp Pulse Resp B/P Pulse Ox O2 Delivery O2 Flow Rate FiO2 07/21/16 18:53 86 18 125/81 98 Room Air 07/21/16 17:12 92 18 127/86 100 Room Air 07/21/16 15:14 96 07/21/16 15:12 98 16 135/87 100 Room Air 07/21/16 13:30 37.1 114 18 148/64 99 Room Air GENERAL: Awake, alert, well-appearing, in no acute distress HENT: Normocephalic, atraumatic. Oropharynx unremarkable. EYES: Normal conjunctiva. Sclera non-icteric. NECK: Supple. No nuchal rigidity. FROM. No JVD. RESPIRATORY: Clear to auscultation. CARDIAC: Regular rate, normal rhythm. Extremities warm and well perfused. Pulses equal. ABDOMEN: Soft, non-distended. No tenderness to palpation. No rebound or guarding. No masses. RECTAL: Deferred. MUSCULOSKELETAL: Chest examination reveals no tenderness. The back is symmetrical on inspection without obvious abnormality. There is no CVA tenderness to palpation. No joint edema. LOWER EXTREMITIES: Calves are equal size bilaterally and non-tender. No edema. No discoloration. NEURO: Normal sensorium. No sensory or motor deficits noted. SKIN: No rash or jaundice noted. Laboratory Results Last 24 Hours Test 07/21/16 14:55 07/21/16 15:40 White Blood Count 11.57 K/uL Red Blood Count 4.77 M/uL Hemoglobin 14.3 g/dL Hematocrit 41.5 % Mean Corpuscular Volume 87.0 fL Mean Corpuscular Hemoglobin 30.0 pg Mean Corpuscular Hemoglobin Concent 34.5 g/dl Platelet Count 272 K/uL Mean Platelet Volume 9.7 fL Neutrophils (%) (Auto) 71.8 % Lymphocytes (%) (Auto) 20.0 % Monocytes (%) (Auto) 6.5 % Eosinophils (%) (Auto) 1.2 % Basophils (%) (Auto) 0.2 % Neutrophils # (Auto) 8.32 K/uL Lymphocytes # (Auto) 2.31 K/uL Monocytes # (Auto) 0.75 K/uL Eosinophils # (Auto) 0.14 K/uL Basophils # (Auto) 0.02 K/uL RDW Standard Deviation 42.0 fL RDW Coefficient of Variation 13.1 % Immature Granulocyte % (Auto) 0.3 % Immature Granulocyte # (Auto) 0.03 K/uL Sodium Level 139 mmol/L Potassium Level 4.1 mmol/L Chloride Level 103 mmol/L Carbon Dioxide Level 26 mmol/L Anion Gap 10.0 mmol/L Blood Urea Nitrogen 11 mg/dl Creatinine 0.67 mg/dl Est Creatinine Clear Calc Drug Dose 66.3 ml/min Estimated GFR () 107.7 Estimated GFR (Non- 92.9 BUN/Creatinine Ratio 16.4 Random Glucose 94 mg/dl Calcium Level 9.0 mg/dl Total Bilirubin 0.5 mg/dl Direct Bilirubin < 0.1 mg/dl Aspartate Amino Transf (AST/SGOT) 19 U/L Alanine Aminotransferase (ALT/SGPT) 24 U/L Alkaline Phosphatase 75 U/L Total Protein 7.3 gm/dl Albumin 3.4 gm/dl Lipase 110 U/L Urine Color YELLOW Urine Appearance CLOUDY Urine pH 8.0 Urine Specific [place] 1.006 Urine Protein NEG Urine Glucose (UA) NEG Urine Ketones 2+ Urine Occult Blood NEG Urine Nitrite NEG Urine Bilirubin NEG Urine Urobilinogen NEG Urine Leukocyte Esterase TRACE Urine WBC (Auto) 1-5 /hpf Urine RBC (Auto) 0-4 /hpf Urine Hyaline Casts (Auto) 0 /lpf Urine Epithelial Cells (Auto) 5-10 /lpf Urine Bacteria (Auto) NEG Assessment & Plan 65 yo F with severe constipation for 9 days, with likely background of IBS like symptoms. Recommendations: GoLytely prep - this was explained to the patient and her . She should take 8 oz over a period of 15 minutes, and repeat hourly as needed until passing stool. As the pharmacy was closed, this was provided to the patient from the ED. She has an appt with GI at 8:30 on 07/22 - she can choose whether or not to attend this based on resolution of her symptoms She should follow up with her PCP within a week, and discuss taking other stool softeners as a preventative measure Additional Copies To Manuel Sanon MD Resident Tracking Resident Involvement: Resident Care Provided Care Provided: [facility] Medicine Assessment and Plan Consultation date addendum: The consultation Date for this patient was : 07/21/2016. Attending Addendum: I have physically seen and examined this patient, have directed their medical care, have supervised the medical residents activities, and agree with the H&P as noted above, with the following changes: The patient is awake, well-developed and adequately nourished, alert and oriented 3, normocephalic and atraumatic, lying in bed and in no acute distress. HEENT--PERRL, EOMI, mucous membranes and oropharynx dry. Neck--supple, no JVD or bruits, thyroid normal, trachea midline, no adenopathy. Heart--normal S1 and S2, no extra beats, no murmurs, rubs or gallops. Lungs--clear bilaterally with good air movement, no respiratory distress, no accessory muscle use. Abdomen--normal bowel sounds and soft, nontender and nondistended, no hernias or masses, no organomegaly. Extremities--no cyanosis, clubbing or edema. There are good distal pulses b/l. Dermatologic--normal skin turgor, normal color, warm and dry, no abnormal lymph nodes, no rash. Neurologic--cranial nerves II through XII grossly intact, motor and sensory examination normal. Rheumatologic--normal range of motion, nontender, muscles and joints. Psychiatric--normal affect. Assessment and Plan: Constipation--the patient admits to significantly decreased liquid intake and relative physical inactivity, both of which I asked her to improve significantly in addition to using the prescription for GoLYTELY prep directed as above. She is encouraged to follow-up with PCP VLADIMIR, and may return to the emergency department with a significant worsening of her symptoms.
[2016-07-21] MEDS ORDERED: DICY10CA12 PO (21:01)
[2016-07-22] MEDS ORDERED: ESTR10TA PV ×2 (12:38)
== END 2016-07-21 21:09 | disposition home or self-care (01) ==
LOC: C.EDB 13:23
DX: K52.9 Noninfective gastroenteritis and colitis, unspecified (principal); K59.00 Constipation, unspecified; J45.909 Unspecified asthma, uncomplicated; Z90.710 Acquired absence of both cervix and uterus; Z98.51 Tubal ligation status; Z82.49 Family history of ischemic heart disease and other diseases of the circulatory system; Z79.899 Other long term (current) drug therapy

== ENCOUNTER 2016-07-22 11:41 | Inpatient (IN) | payer BC ==
[~2016-07-22] VITALS: Ht 152.4 cm; Wt 57.3 kg
[~2016-07-22 11:41] MED LIST changes: -ESTR10TA PV; -MCRK20 PO
[2016-07-22] MEDS ORDERED: ESTR10TA PV ×2 (12:38)
--- NOTE | 2016-07-22 13:22 | EMERGENCY ROOM VISIT NOTE ---
History Report prepared by Annita: Michele Diaz Under the Supervision of: Dr. Len Rincon M.D. First contact with patient: 12:51 Chief Complaint: REFERRED BY DOCTOR Stated Complaint: FECAL IMPACTION History of Present Illness The patient is a 65 year old female who presents to the Emergency Room with complaints of waxing and waning abdominal pain starting a few days ago. She also complains of constipation. She has been taking GoLYTELY without relief. This is the patient's third visit to the Emergency Room for similar complaints. She was referred to the Emergency Room today by Jessica Antonio, embroidery machine operator, for concerns about fecal impaction. The patient denies chest pain, shortness of breath, or any other complaints. Source of History: patient Onset: a few days ago Position: abdomen Timing: waxes/wanes Modifying Factors (Relieving): other (GoLYTELY without relief) Associated Symptoms: No SOB, No chest pain Review of Systems See HPI for pertinent positives & negatives. A total of 10 systems reviewed and were otherwise negative. Past Medical & Surgical Medical Problems: (1) Asthma Surgical Problems: (1) S/P dilation and curettage (2) S/P hysterectomy (3) S/P tonsillectomy (4) S/P tubal ligation Family History Cancer Gallbladder disease Hypertension Social History Smoking Status: Never Smoker Alcohol Use: occasionally Marital Status: Housing Status: lives with significant other Occupation Status: retired Current/Historical Medications Scheduled Budesonide/Formoterol Fumarate (Symbicort 160/4.5 Inhaler ), 2 PUFFS INH BID Calcium/Vitamin D (Os-Jong 500 Plus D), 1 TAB PO DAILY Estradiol Vaginal (Vagifem), 1 TAB PV 2XWK Levothyroxine Sodium (Levothyroxine Sodium), 1 TAB PO DAILY Multivitamin (Multivitamin), 1 TAB PO DAILY Polyethylene Glycol 3350 (Miralax), 34 GM PO DAILY Potassium Chloride (Klor-Con M20), 20 MEQ PO QAM Scheduled PRN Sumatriptan Succinate (Imitrex), 100 MG PO PRN PRN for Migraine Allergies Coded Allergies: No Known Allergies (Unverified , 07/19/16) Physical Exam Vital Signs Date Time Temp Pulse Resp B/P Pulse Ox O2 Delivery O2 Flow Rate FiO2 07/22/16 13:19 111 07/22/16 11:42 37.4 119 17 147/87 98 Room Air Physical Exam GENERAL: Patient is a healthy-appearing well-nourished HEAD: Normocephalic atraumatic EYES: Ocular movements intact pupils equal and react to light OROPHARYNX mucous membranes are moist no exudates present no erythema or edema present NECK: Supple no nuchal rigidity CHEST: Good equal expansion LUNGS: Clear and equal to auscultation CARDIAC: Normal S1 and S2 ABDOMEN: Soft nontender no guarding BACK: No CVA tenderness EXTREMITIES: No pain upon palpation normal muscle strength in all groups no clubbing cyanosis or edema NEURO: Patient is following commands is answering questions appropriately. Alert and oriented x3 Cranial Nerves 2-12 grossly intact Medical Decision & Procedures ED Course 1251: Past medical records reviewed. The patient was evaluated in room A12B. A complete history and physical examination was performed. 1308: Upon reexamination the patient is resting comfortably. I discussed results and treatment plan with the patient. She verbalizes agreement and understanding. I spoke with Dr. Cruz from the [facility] Hospitalist Service. The patient will be evaluated for further management. Medical Decision Differential diagnosis: Etiologies such as appendicitis, diverticulitis, PUD, biliary pathology, UTI, pancreatitis, obstruction, mesenteric ischemia, aortic pathology, infections, inflammatory bowel disease, renal colic, as well as others were entertained. This is a 65-year-old female who presents emergency department complaining of a fecal impaction. The patient was sent in by gastroenterology for admission. I did discuss case with the hospitalist service who agreed to admit the patient. Consults Time Called: 1305 Consulting Physician: Dr. Cruz from the [facility] Hospitalist Service Returned Call: [address] Cruz from the [facility] Hospitalist Service. Impression Primary Impression: Fecal impaction Scribe Attestation The scribe's documentation has been prepared under my direction and personally reviewed by me in its entirety. I confirm that the note above accurately reflects all work, treatment, procedures, and medical decision making performed by me. Departure Information Dispostion Being Evaluated By Hospitalist Prescriptions Polyethylene Glycol 3350 (MIRALAX) 1 Pow Pow 34 GM PO DAILY, #527 GM Prov: Sammy Olvera, DO 07/23/16 Potassium Chloride (Klor-Con M20) 20 Meq Tabcr 20 MEQ PO QAM for 30 Days, #30 0 Refills Prov: Sammy Olvera, DO 07/23/16 Referrals Manuel Sanon MD (PCP) Patient Instructions My [facility]
[2016-07-22] MEDS ORDERED: SOD PHOSPHATE/SOD BIPHOSPHATE ENEMA 132 ML BTL PR PRN (13:30)
[2016-07-22] MEDS ORDERED: HEPARIN SOD 5000 UNIT/0.5 ML CARP SQ SCH (13:30)
[2016-07-22] MEDS ORDERED: ONDANSETRON INJ 2 MG/ML 2 ML VIAL IV PRN (13:30)
[2016-07-22] MEDS ORDERED: SUMATRIPTAN SUCC TAB 100 MG TAB PO PRN (13:30)
[2016-07-22] MEDS ORDERED: BISACODYL 10 MG SUPP PR PRN (13:30)
[2016-07-22] MEDS ORDERED: ACETAMINOPHEN 325 MG TAB PO PRN (13:30)
[2016-07-22 13:50] LABS: BASO % 0.1 %; BASO ABS # 0.01 K/uL (0-0.2); COMPLETE YES; EOS % 0.6 %; HEMATOCRIT 33.2 % (37-47); IG% 0.3 %; LYMPH % 24.8 %; LYMPH ABS # 2.79 K/uL (1.2-3.4); MEAN CELL VOLUME 85.6 fL (80-100); MEAN CORPUSCULAR HEMOGLOBIN 29.6 pg (25-34); MEAN CORPUSCULAR HGB CONC 34.6 g/dl (32-36); MEAN PLATELET VOLUME 9.3 fL (7.4-10.4); MONO % 7.6 %; NEUT % 66.6 %; PLATELET COUNT 253 K/uL (130-400); RED BLOOD COUNT 3.88 M/uL (4.2-5.4); WHITE BLOOD COUNT 11.23 K/uL (4.8-10.8)
[2016-07-22 14:08] LABS: ALT/SGPT 19 U/L (12-78); AST/SGOT 15 U/L (15-37); BUN/CREATININE RATIO 11.5 (10-20); CALCIUM 8.8 mg/dl (8.5-10.1); CARBON DIOXIDE 26 mmol/L (21-32); CHLORIDE 104 mmol/L (98-107); CREATININE 0.52 mg/dl (0.60-1.20); GLUCOSE 93 mg/dl (70-99); POTASSIUM 3.6 mmol/L (3.5-5.1); SODIUM 141 mmol/L (136-145)
[2016-07-22] MEDS ORDERED: MILK AND MOLASSES ENEMA PR SCH (14:15)
[2016-07-22 14:23] LABS: ALKALINE PHOSPHATASE 60 U/L (45-117)
[2016-07-22 14:24] LABS: BLOOD UREA NITROGEN 6 mg/dl (7-18)
--- NOTE | 2016-07-22 14:26 | History and Physical ---
History & Physical Date & Time of Service: Jul 22, 2016 at 14:14 Chief Complaint: Fecal Impaction Primary Care Physician: Andre Kohler M.D. History of Present Illness Source: patient, spouse Pt is a 65 yo female with hx of hypothyroidism and asthma who presents to the ER with complaints of waxing and waning abdominal pain starting a few days ago. She also complains of constipation which she reports has been ongoing now for a week. Pt presented to ER just yesterday in which CT abd/pelvis determined nonspecific colitis and significant impaction. Pt was sent home on [facility] in which she states she finsihed half the jug without any relief. This is the patient's third visit to the Emergency Room for similar complaints. She was referred to the Emergency Room today by Jessica Antonio, chemical operations and training, for concerns about fecal impaction. The patient denies chest pain, shortness of breath, nausea or vomiting. Pt does report left lower quadrant tenderness. Past Medical/Surgical History Medical Problems: (1) Asthma Status: Chronic Surgical Problems: (1) S/P dilation and curettage Status: Resolved (2) S/P hysterectomy Status: Resolved (3) S/P tonsillectomy Status: Resolved (4) S/P tubal ligation Status: Resolved Family History Cancer Gallbladder disease Hypertension Social History Smoking Status: Never Smoker Smokeless Tobacco Use: No Marital Status: Occupational Status: retired Allergies Coded Allergies: No Known Allergies (Unverified , 07/19/16) Home Medications Scheduled Budesonide/Formoterol Fumarate (Symbicort 160/4.5 Inhaler ), 2 PUFFS INH BID Calcium/Vitamin D (Os-Jong 500 Plus D), 1 TAB PO DAILY Estradiol Vaginal (Vagifem), 1 TAB PV 2XWK Levothyroxine Sodium (Levothyroxine Sodium), 1 TAB PO DAILY Multivitamin (Multivitamin), 1 TAB PO DAILY Scheduled PRN Sumatriptan Succinate (Imitrex), 100 MG PO PRN PRN for Migraine Review of Systems Constitutional: + chills, No fever, No sweats Respiratory: No cough, No sputum Cardiovascular: No chest pain, No edema, No orthopnea Abdomen: + constipation, + pain, No diarrhea, No nausea, No vomiting Musculoskeletal: No joint pain, No muscle pain Genitourinary - Female: No dysuria, No urinary frequency, No urinary urgency Physical Exam Vital Signs Date Time Temp Pulse Resp B/P Pulse Ox O2 Delivery O2 Flow Rate FiO2 07/22/16 13:19 111 07/22/16 11:42 37.4 119 17 147/87 98 Room Air General Appearance: WD/WN, + mild distress Neck: supple, no adenopathy Respiratory/Chest: lungs clear, normal breath sounds Cardiovascular: no edema, no gallop Abdomen/GI: no organomegaly, + tenderness (left lower quadrant pain on palpation) Neurologic/Psych: alert, normal mood/affect, oriented x 3 Diagnostics Laboratory Results Results Past 24 Hours Test 07/22/16 13:35 Range/Units White Blood Count 11.23 4.8-10.8 K/uL Red Blood Count 3.88 4.2-5.4 M/uL Hemoglobin 11.5 12.0-16.0 g/dL Hematocrit 33.2 37-47 % Mean Corpuscular Volume 85.6 80-100 fL Mean Corpuscular Hemoglobin 29.6 25-34 pg Mean Corpuscular Hemoglobin Concent 34.6 32-36 g/dl Platelet Count 253 130-400 K/uL Mean Platelet Volume 9.3 7.4-10.4 fL Neutrophils (%) (Auto) 66.6 % Lymphocytes (%) (Auto) 24.8 % Monocytes (%) (Auto) 7.6 % Eosinophils (%) (Auto) 0.6 % Basophils (%) (Auto) 0.1 % Neutrophils # (Auto) 7.48 1.4-6.5 K/uL Lymphocytes # (Auto) 2.79 1.2-3.4 K/uL Monocytes # (Auto) 0.85 0.11-0.59 K/uL Eosinophils # (Auto) 0.07 0-0.5 K/uL Basophils # (Auto) 0.01 0-0.2 K/uL RDW Standard Deviation 40.5 36.4-46.3 fL RDW Coefficient of Variation 13.0 11.5-14.5 % Immature Granulocyte % (Auto) 0.3 % Immature Granulocyte # (Auto) 0.03 0.00-0.02 K/uL Sodium Level 141 136-145 mmol/L Potassium Level 3.6 3.5-5.1 mmol/L Chloride Level 104 98-107 mmol/L Carbon Dioxide Level 26 21-32 mmol/L Anion Gap 11.0 3-11 mmol/L Creatinine 0.52 0.60-1.20 mg/dl Est Creatinine Clear Calc Drug Dose 86.7 ml/min Estimated GFR () 117.0 Estimated GFR (Non- 101.0 BUN/Creatinine Ratio 11.5 10-20 Random Glucose 93 70-99 mg/dl Calcium Level 8.8 8.5-10.1 mg/dl Direct Bilirubin < 0.1 0-0.2 mg/dl Aspartate Amino Transf (AST/SGOT) 15 15-37 U/L Alanine Aminotransferase (ALT/SGPT) 19 12-78 U/L Albumin 2.9 3.4-5.0 gm/dl Lipase 79 73-393 U/L Impression Assessment and Plan Pt is a 65 yo female with hx of constipation x 1 week with chills and lower left quadrant abd pain Abd pain/constipation likely secondary to fecal impaction, CT abd/pelvis obtained confirmed non-specific colitis and signifcant fecal impaction. Pt given golytely but unable to finish whole jug. Will admit and give milk and molasses enema in addition to dulcolax. Mild leukocytosis. Will utilize cipro and flagyl IV as can not tule out ischemic colitis. No fevers noted but pt reports chills. GI has been consulted Asthma - Cont symbicort, stable Hypothyroidism - Cont synthroid Vit D Def - Cont Vit D VTE Prophylaxis VTE Risk Assessment Done? Y/N: Yes Risk Level: Moderate
[2016-07-22 14:37] LABS: PROTHROMBIN TIME (PATIENT) 10.9 SECONDS (9.0-12.0)
[2016-07-22 14:52] LABS: URINE APPEARANCE CLEAR (CLEAR); URINE BILIRUBIN NEG (NEG); URINE COLOR YELLOW; URINE NITRITE NEG (NEG); URINE PH 7.5 (4.5-7.5); URINE SPECIFIC GRAVITY 1.007 (1.000-1.030); UROBILINOGEN NEG (NEG)
[2016-07-22 15:02] LABS: MANUAL MICROSCOPIC REQUIRED? NO; REVIEW REQ? NO
[2016-07-22 15:08] VITALS: O2SAT 97
[2016-07-22 16:00] VITALS: BP 146/94; TEMP 36.5; Ht 152.4 cm; Wt 57.3 kg
[2016-07-22 16:07] VITALS: BP 146/94; PULSE 87; TEMP 36.5; O2SAT 97
[2016-07-22] MEDS ORDERED: LACTATED RINGER'S 1000ML 1,000 ML IV SCH (16:15)
[2016-07-22] MEDS ORDERED: POTASSIUM CHLORIDE 10 MEQ TABCR PO ONE (16:30)
[2016-07-22] MEDS: CIPROFLOXACIN / D5W 400 MG in PREMIXED IN D5W 200 ML IV SCH (16:41)
[2016-07-22] MEDS: METRONIDAZOLE / NSS 500 MG in PREMIXED NSS 100 ML IV SCH (16:42)
--- NOTE | 2016-07-22 16:49 | Gastrointestinal Consultation ---
Gastrointestinal Consultation Date of Consultation: Jul 22, 2016 Attending Physician: Dr. Cruz Consulting Physician: Dr. Bhakta Reason for Consultation: Fecal impactioin History of Present Illness We have been asked to provide a GI consult for Dr. Cartwright for whom we are covering today. The patient is a 65 year old female with a hx of hypothyroidism who was admitted for a fecal impaction. She has had problems with constipation for about 3 weeks, becoming severe and seeking medical attention on Monday at a walk in clinic, then in ED july 19 and . Thus far, she has taken Dulcolax, 1/2 of a Miralax prep and given her self enemas w/o a BM since last week. She tells me that the digital rectal exam done on Monday was (-) for stool in the fecal vault and it was again today when I examined her. CT today with 7cm cecal colon distention. Labs with K 3.6 which is borderline low but the remainder of the CBC/CMP are both normal. She is awake, alert, oriented and hemodynamically stable though she does have mild abdominal distention on exam. Past Medical/Surgical History Medical Problems: (1) Abdominal pain Status: Acute (2) Abdominal pain, left lower quadrant Status: Acute (3) Colitis Status: Acute (4) Constipation Status: Acute (5) Constipation Status: Acute (6) Fecal impaction Status: Acute (7) Fecal impaction Status: Acute (8) Left sided abdominal pain Status: Acute Past Medical History: 1. Hypothyroidism 2. Asthma Past Surgical History: 1. Tonsillectomy 2. Hysterectomy 3. D&C 4. Tubal ligation Family History Cancer Gallbladder disease Hypertension Social History Smoking Status: Never Smoker Alcohol Use: occasionally Marital Status: Housing Status: lives with significant other Occupation Status: retired Allergies Coded Allergies: No Known Allergies (Unverified , 07/19/16) Current Medications Home Meds and Scripts Medications Dose Route/Sig Max Daily Dose Days Date Category Vagifem (Estradiol Vaginal) 10 Mcg Tab 1 Tab PV 2XWK 84 07/22/16 Reported Imitrex (Sumatriptan Succinate) 100 Mg Tab 100 Mg PO PRN PRN 07/19/16 Reported Os-Jong 500 Plus D (Calcium/Vitamin D) Tab 1 Tab PO DAILY 07/19/16 Reported Multivitamin (Multivitamins) Tab 1 Tab PO DAILY 07/19/16 Reported Levothyroxine Sodium 88 Mcg Tab 1 Tab PO DAILY 90 07/19/16 Reported Symbicort 160/4.5 Inhaler (Budesonide/Formoterol Fumarate) Aero 2 Puffs INH BID 07/19/16 Reported Review of Systems Constitutional: No chills, No fever, No sweats, No weakness, No weight loss Eyes: No eye pain, No redness ENT: No pain on swallowing, No sore throat, No trouble swallowing Respiratory: No cough, No dyspnea on exertion, No shortness of breath, No wheezing Cardiac: No chest pain, No edema, No palpitations Abdomen: + constipation, + pain, + see HPI, No GI bleeding, No diarrhea, No nausea, No vomiting Neuro: No balance problems, No memory loss, No numbness/tingling, No vertigo, No weakness Psych: No anxiety, No depression symptoms, No insomnia Heme: No abnormal bleeding/bruising, No night sweats Endo: No excessive thirst, No excessive urination Skin: No itch, No jaundice, No new/changing skin lesions, No rash Physical Exam Date Time Temp Pulse Resp B/P Pulse Ox O2 Delivery O2 Flow Rate FiO2 07/22/16 16:07 36.5 87 16 146/94 97 Room Air 07/22/16 15:08 37.3 104 12 139/85 97 Room Air 07/22/16 13:30 103 18 140/93 98 Room Air 07/22/16 13:19 111 07/22/16 11:42 37.4 119 17 147/87 98 Room Air General Appearance: no apparent distress Eyes: normal inspection, EOMI Neck: supple, no adenopathy, thyroid normal, no JVD Respiratory/Chest: chest non-tender, lungs clear, normal breath sounds, no accessory muscle use Cardiovascular: regular rate, rhythm, no JVD, no murmur Abdomen: normal bowel sounds, soft (not taunt; non surgical, overall soft), no organomegaly, + distended (mild), + tenderness (diffusely tender) Extremities: normal inspection, no pedal edema, normal capillary refill Neurologic/Psych: alert, normal mood/affect, oriented x 3 Skin: normal color, no jaundice, warm/dry, no rash Laboratory Results Last 24 Hours Test 07/22/16 13:35 3/24/17 14:15 White Blood Count 11.23 K/uL Red Blood Count 3.88 M/uL Hemoglobin 11.5 g/dL Hematocrit 33.2 % Mean Corpuscular Volume 85.6 fL Mean Corpuscular Hemoglobin 29.6 pg Mean Corpuscular Hemoglobin Concent 34.6 g/dl Platelet Count 253 K/uL Mean Platelet Volume 9.3 fL Neutrophils (%) (Auto) 66.6 % Lymphocytes (%) (Auto) 24.8 % Monocytes (%) (Auto) 7.6 % Eosinophils (%) (Auto) 0.6 % Basophils (%) (Auto) 0.1 % Neutrophils # (Auto) 7.48 K/uL Lymphocytes # (Auto) 2.79 K/uL Monocytes # (Auto) 0.85 K/uL Eosinophils # (Auto) 0.07 K/uL Basophils # (Auto) 0.01 K/uL RDW Standard Deviation 40.5 fL RDW Coefficient of Variation 13.0 % Immature Granulocyte % (Auto) 0.3 % Immature Granulocyte # (Auto) 0.03 K/uL Prothrombin Time 10.9 SECONDS Prothromb Time International Ratio 1.0 Activated Partial Thromboplast Time 27.0 SECONDS Partial Thromboplastin Ratio 1.0 Sodium Level 141 mmol/L Potassium Level 3.6 mmol/L Chloride Level 104 mmol/L Carbon Dioxide Level 26 mmol/L Anion Gap 11.0 mmol/L Blood Urea Nitrogen 6 mg/dl Creatinine 0.52 mg/dl Est Creatinine Clear Calc Drug Dose 86.7 ml/min Estimated GFR () 117.0 Estimated GFR (Non- 101.0 BUN/Creatinine Ratio 11.5 Random Glucose 93 mg/dl Calcium Level 8.8 mg/dl Total Bilirubin 0.4 mg/dl Direct Bilirubin < 0.1 mg/dl Aspartate Amino Transf (AST/SGOT) 15 U/L Alanine Aminotransferase (ALT/SGPT) 19 U/L Alkaline Phosphatase 60 U/L Total Protein 6.3 gm/dl Albumin 2.9 gm/dl Lipase 79 U/L Urine Color YELLOW Urine Appearance CLEAR Urine pH 7.5 Urine Specific [place] 1.007 Urine Protein NEG Urine Glucose (UA) NEG Urine Ketones 2+ Urine Occult Blood NEG Urine Nitrite NEG Urine Bilirubin NEG Urine Urobilinogen NEG Urine Leukocyte Esterase NEG Impression Patient is a 65 year old female with severe constipation, fecal impaction, cecal dilation to 7cm. There does not seem to be any precipitating events, no narcotic use, no recent surgeries. She is hypothyroid which would contribute. Plan 1. 1L LR bolus. 2. Clear liquids po. 3. Potassium chloride 40meq po. Please monitor K and keep serum levels above 4. 4. Mild of Magnesium enemas followed by a dulcolax suppository every 4 hrs x 24 hrs. 5. Pt to finish the golytely that she started yesterday. I have seen , examined and agree with the plan as outlined by SVETA Briones as above. -exam reveals soft abd -multiple bm's with enemas, feels improved -advance diet as tolerated to max of low residue -d/c enemas -ok for golytely/miralax orally -will need two scoops daily of miralax on d/c -follow xray from today, but appears on my review with normal bowel gas pattern and no fecal burden -short interval f/u colonoscopy with Dr. Cartwright and will need f/u with Jessica Antonio
[2016-07-22] MEDS ORDERED: LAVAGE SOLUTION 4000ML PO SCH (18:00)
[2016-07-22] MEDS: MILK AND MOLASSES ENEMA PR SCH (20:00)
[2016-07-22] MEDS: SODIUM CHLORIDE 0.9% 1000ML 1,000 ML IV SCH (20:27)
[2016-07-22] MEDS: BISACODYL 10 MG SUPP PR SCH (20:27)
[2016-07-22] MEDS ORDERED: NURSING VERBAL MED ORDER ONE (21:15)
[2016-07-22] MEDS ORDERED: SUMATRIPTAN PO PRN (21:30)
[2016-07-22] MEDS: BUDESONIDE/FORMOTEROL FUMARATE 160/4.5 60 PUFFS/INHALER INH SCH (22:03)
[2016-07-23] MEDS: METRONIDAZOLE / NSS 500 MG in PREMIXED NSS 100 ML IV SCH ×2 (00:16→07:51)
[2016-07-23 00:18] VITALS: BP 132/74; PULSE 103; TEMP 37.2; O2SAT 94
[2016-07-23] MEDS: SODIUM CHLORIDE 0.9% 1000ML 1,000 ML IV SCH ×2 (04:11→14:01)
[2016-07-23] MEDS: CIPROFLOXACIN / D5W 400 MG in PREMIXED IN D5W 200 ML IV SCH (04:11)
[2016-07-23] MEDS ORDERED: LEVOTHYROXINE 88 MCG PO SCH (06:30)
[2016-07-23] MEDS ORDERED: LEVOTHYROXINE 88 MCG TAB PO SCH (06:30)
[2016-07-23 07:44] VITALS: BP 118/72; PULSE 101; TEMP 36.8; O2SAT 94
[2016-07-23] MEDS: BUDESONIDE/FORMOTEROL FUMARATE 160/4.5 60 PUFFS/INHALER INH SCH (07:51)
[2016-07-23 08:00] LABS: BASO % 0.3 %; BASO ABS # 0.02 K/uL (0-0.2); COMPLETE YES; EOS % 2.6 %; HEMATOCRIT 30.8 % (37-47); IG% 0.4 %; LYMPH % 32.6 %; LYMPH ABS # 2.51 K/uL (1.2-3.4); MEAN CELL VOLUME 87.5 fL (80-100); MEAN CORPUSCULAR HGB CONC 33.1 g/dl (32-36); MEAN PLATELET VOLUME 9.5 fL (7.4-10.4); MONO % 8.4 %; NEUT % 55.7 %; PLATELET COUNT 235 K/uL (130-400); RED BLOOD COUNT 3.52 M/uL (4.2-5.4)
[2016-07-23] MEDS ORDERED: CALCIUM 600MG + VIT D 400 IU TAB PO SCH (08:00)
[2016-07-23] MEDS ORDERED: MULTIVITAMIN TAB PO SCH (08:00)
[2016-07-23] MEDS: MILK AND MOLASSES ENEMA PR SCH ×2 (08:00→12:00)
[2016-07-23] MEDS: BISACODYL 10 MG SUPP PR SCH ×2 (08:00→12:00)
[2016-07-23] MEDS ORDERED: POTASSIUM CHLORIDE 20 MEQ TABCR PO SCH (08:00)
[2016-07-23 08:24] LABS: BUN/CREATININE RATIO 8.9 (10-20); CALCIUM 8.5 mg/dl (8.5-10.1); CREATININE 0.54 mg/dl (0.60-1.20); POTASSIUM 3.8 mmol/L (3.5-5.1)
[2016-07-23] MEDS ORDERED: POTASSIUM CHLORIDE 20 MEQ/15 ML UDC PO ONE (08:45)
--- NOTE | 2016-07-23 09:02 | Hospitalist Progress Note ---
Hospitalist Progress Note Date of Service Jul 23, 2016. Subjective Pt evaluation today including: conversation w/ patient, physical exam, chart review, lab review, review of studies, review of inpatient medication list Patient has less pain today. She has been having multiple loose (diarrhea) bms. She is tolerating liquid diet, but does not feel that she wants to advance at this time. Additional Comments: A 10 system review was performed and all were negative. Positives were placed in the subjective section. Objective Vital Signs Date Time Temp Pulse Resp B/P Pulse Ox O2 Delivery O2 Flow Rate FiO2 07/23/16 07:44 36.8 101 16 118/72 94 Room Air 07/23/16 00:18 37.2 103 16 132/74 94 Room Air 07/23/16 00:00 Room Air 07/22/16 16:07 36.5 87 16 146/94 97 Room Air 07/22/16 16:00 36.5 16 146/94 Room Air 07/22/16 15:08 37.3 104 12 139/85 97 Room Air 07/22/16 13:30 103 18 140/93 98 Room Air 07/22/16 13:19 111 07/22/16 11:42 37.4 119 17 147/87 98 Room Air Physical Exam Notes: GEN: Awake, alert, and oriented x 3. Not in acute distress HEENT: Tm's intact, no inflammation, EOMI, PERRLA, MMM Neck: Soft, supple Lungs: CTA b/l, no r/r/w Heart: REG, nrl S1S2 without murmurs, rubs or gallops Abdomen: Soft, Minimal diffuse tenderness. No masses noted. No rebound tenderness. EXT: No C/C/E NEURO: CN's II-XII grossly intact, non-focal Skin: warm, dry, no rashes PSYCH: pleasant, cooperative. Laboratory Results Last 24 Hours Test 07/22/16 13:35 07/22/16 14:15 07/23/16 07:20 White Blood Count 11.23 K/uL 7.70 K/uL Red Blood Count 3.88 M/uL 3.52 M/uL Hemoglobin 11.5 g/dL 10.2 g/dL Hematocrit 33.2 % 30.8 % Mean Corpuscular Volume 85.6 fL 87.5 fL Mean Corpuscular Hemoglobin 29.6 pg 29.0 pg Mean Corpuscular Hemoglobin Concent 34.6 g/dl 33.1 g/dl Platelet Count 253 K/uL 235 K/uL Mean Platelet Volume 9.3 fL 9.5 fL Neutrophils (%) (Auto) 66.6 % 55.7 % Lymphocytes (%) (Auto) 24.8 % 32.6 % Monocytes (%) (Auto) 7.6 % 8.4 % Eosinophils (%) (Auto) 0.6 % 2.6 % Basophils (%) (Auto) 0.1 % 0.3 % Neutrophils # (Auto) 7.48 K/uL 4.29 K/uL Lymphocytes # (Auto) 2.79 K/uL 2.51 K/uL Monocytes # (Auto) 0.85 K/uL 0.65 K/uL Eosinophils # (Auto) 0.07 K/uL 0.20 K/uL Basophils # (Auto) 0.01 K/uL 0.02 K/uL RDW Standard Deviation 40.5 fL 42.2 fL RDW Coefficient of Variation 13.0 % 13.1 % Immature Granulocyte % (Auto) 0.3 % 0.4 % Immature Granulocyte # (Auto) 0.03 K/uL 0.03 K/uL Prothrombin Time 10.9 SECONDS Prothromb Time International Ratio 1.0 Activated Partial Thromboplast Time 27.0 SECONDS Partial Thromboplastin Ratio 1.0 Sodium Level 141 mmol/L 141 mmol/L Potassium Level 3.6 mmol/L 3.8 mmol/L Chloride Level 104 mmol/L 105 mmol/L Carbon Dioxide Level 26 mmol/L 27 mmol/L Anion Gap 11.0 mmol/L 9.0 mmol/L Blood Urea Nitrogen 6 mg/dl 5 mg/dl Creatinine 0.52 mg/dl 0.54 mg/dl Est Creatinine Clear Calc Drug Dose 86.7 ml/min 83.4 ml/min Estimated GFR () 117.0 115.6 Estimated GFR (Non- 101.0 99.7 BUN/Creatinine Ratio 11.5 8.9 Random Glucose 93 mg/dl 82 mg/dl Calcium Level 8.8 mg/dl 8.5 mg/dl Total Bilirubin 0.4 mg/dl Direct Bilirubin < 0.1 mg/dl Aspartate Amino Transf (AST/SGOT) 15 U/L Alanine Aminotransferase (ALT/SGPT) 19 U/L Alkaline Phosphatase 60 U/L Total Protein 6.3 gm/dl Albumin 2.9 gm/dl Lipase 79 U/L Urine Color YELLOW Urine Appearance CLEAR Urine pH 7.5 Urine Specific [place] 1.007 Urine Protein NEG Urine Glucose (UA) NEG Urine Ketones 2+ Urine Occult Blood NEG Urine Nitrite NEG Urine Bilirubin NEG Urine Urobilinogen NEG Urine Leukocyte Esterase NEG Assessment and Plan 1) Fecal impaction - getting response from treatments, having less pain. Continue current therapies. Additional potassium to keep K+>3.9. KUB scheduled for today. 2) Abdominal pain - improving 3) Asthma - stable, no acute issues 4) Hypothyroidism - levothyroxine DVT prophylaxis - TEDs, SCDs.
[2016-07-23] MEDS ORDERED: MCRK20 PO ×2 (15:12)
[2016-07-23] MEDS ORDERED: POLY335019 PO ×2 (15:12)
--- NOTE | 2016-07-23 15:15 | Discharge Instructions ---
Discharge Instructions Date of Service Jul 23, 2016. Admission Reason for Admission: Fecal Impaction Discharge Discharge Diagnosis / Problem: Fecal impaction/constipation Discharge Goals Goal(s): Decrease discomfort, Improve function Activity Recommendations Activity Limitations: resume your previous activity . Instructions / Follow-Up Instructions / Follow-Up PCP in 5-7 days GwenologyDr. Case - call office Monday to schedule an appointment for 2 -3 weeks. Current Hospital Diet Patient's current hospital diet: Clear Liquid Diet Discharge Diet Recommended Diet: Low Fiber Diet Procedures Procedures Performed: NONE. Pending Studies Studies pending at discharge: no Laboratory Results Last 24 Hours Test 07/23/16 07:20 White Blood Count 7.70 K/uL Red Blood Count 3.52 M/uL Hemoglobin 10.2 g/dL Hematocrit 30.8 % Mean Corpuscular Volume 87.5 fL Mean Corpuscular Hemoglobin 29.0 pg Mean Corpuscular Hemoglobin Concent 33.1 g/dl Platelet Count 235 K/uL Mean Platelet Volume 9.5 fL Neutrophils (%) (Auto) 55.7 % Lymphocytes (%) (Auto) 32.6 % Monocytes (%) (Auto) 8.4 % Eosinophils (%) (Auto) 2.6 % Basophils (%) (Auto) 0.3 % Neutrophils # (Auto) 4.29 K/uL Lymphocytes # (Auto) 2.51 K/uL Monocytes # (Auto) 0.65 K/uL Eosinophils # (Auto) 0.20 K/uL Basophils # (Auto) 0.02 K/uL RDW Standard Deviation 42.2 fL RDW Coefficient of Variation 13.1 % Immature Granulocyte % (Auto) 0.4 % Immature Granulocyte # (Auto) 0.03 K/uL Sodium Level 141 mmol/L Potassium Level 3.8 mmol/L Chloride Level 105 mmol/L Carbon Dioxide Level 27 mmol/L Anion Gap 9.0 mmol/L Blood Urea Nitrogen 5 mg/dl Creatinine 0.54 mg/dl Est Creatinine Clear Calc Drug Dose 83.4 ml/min Estimated GFR () 115.6 Estimated GFR (Non- 99.7 BUN/Creatinine Ratio 8.9 Random Glucose 82 mg/dl Calcium Level 8.5 mg/dl Medical Emergencies . Who to Call and When: Medical Emergencies: If at any time you feel your situation is an emergency, please call 911 immediately. . Non-Emergent Contact Non-Emergency issues call your: Primary Care Provider . . "Provider Documentation" section prepared by Sammy Olvera. VTE Core Measure Inpt VTE Proph given/why not?: [place]
--- NOTE | 2016-07-23 15:56 | Discharge Summary ---
Discharge Summary Date of Service Jul 23, 2016. Discharge Summary Admission Date: Jul 22, 2016 at 13:27 Discharge Date: Jul 23, 2016 Discharge Disposition: Home Principal Diagnosis: Fecal impaction Problems/Secondary Diagnoses: Constipation/hypothyroidism Procedures: None. Consultations: Gastroenterology, Dr. Nguyen Case - (Seen by covering electric motor mechanic Dr. Bhakta and his PA Atul Pearson) Medication Reconciliation New Medications: Polyethylene Glycol 3350 (Miralax) 1 Pow Pow 34 GM PO DAILY, #527 GM NS Potassium Chloride (Klor-Con M20) 20 Meq Tabcr 20 MEQ PO QAM for 30 Days, #30 0 Refills Continued Medications: Budesonide/Formoterol Fumarate (Symbicort 160/4.5 Inhaler ) Aero 2 PUFFS INH BID, INHALER Calcium/Vitamin D (Os-Jong 500 Plus D) Tab 1 TAB PO DAILY, TAB Estradiol Vaginal (Vagifem) 10 Mcg Tab 1 TAB PV 2XWK for 84 Days, #24 TAB 3 Refills Levothyroxine Sodium (Levothyroxine Sodium) 88 Mcg Tab 1 TAB PO DAILY for 90 Days, #90 TAB 3 Refills Multivitamin (Multivitamin) Tab 1 TAB PO DAILY, TAB Sumatriptan Succinate (Imitrex) 100 Mg Tab 100 MG PO PRN PRN for Migraine, TAB Discharge Exam A 10 system review was performed and all were negative. GEN: Awake, alert, and oriented x 3. Not in acute distress HEENT: Tm's intact, no inflammation, EOMI, PERRLA, MMM Neck: Soft, supple Lungs: CTA b/l, no r/r/w Heart: REG, nrl S1S2 without murmurs, rubs or gallops Abdomen: Soft, NT, ND, + BS EXT: No C/C/E NEURO: CN's II-XII grossly intact, non-focal Skin: warm, dry, no rashes PSYCH: pleasant, cooperative, no signs of significant anxiety or depression. Hospital Course Patient was admitted with fecal impaction and was having difficulty moving bowels since end of June. She had attempted Fleet enema in the ED this same week, but did not relieve impaction. She was admitted and seen by GI who recommended milk and molasses enemas. She was given Golytely orally as well. That same evening and over night the patient had multiple bms to the point that by am she was having liquid stools. She felt much better. The pain she had noted was resolved. Dr. Bhakta saw her and felt that she could go home. I advised her on a low residue diet and whe was given a hand out on the same. She was tolerating liquid diet, but did not want to remain in hospital just for diet advancement. DVT prophylaxis - TEDs, SCDs. Total Time Spent: Greater than 30 minutes This includes examination of the patient, discharge planning, medication reconciliation, and communication with other providers. Discharge Instructions Please refer to the electronic Patient Visit Report (Discharge Instructions) for additional information. Follow-Up PCP in 5-7 days Gastroenterology, Dr. Cartwright in 2-3 weeks.
[2016-07-23 16:30] VITALS: BP 118/72; PULSE 101; TEMP 36.8; O2SAT 94
--- NOTE | 2016-07-23 17:38 | DIAGNOSTIC IMAGING REPORT ---
KUB CLINICAL HISTORY: Fecal impaction. FINDINGS: 2 AP supine abdominal radiographs are correlated with abdominal CT dated 07/21/2016. There is a nonobstructed abdominal bowel gas pattern. There is gaseous distention of the colon, and the cecum measures up to 5.5 cm in diameter. No evidence of intraperitoneal free air is seen. The fecal load appears modestly improved from 07/21/2016. Phleboliths and a vaginal pessary are noted in the pelvis. The skeletal structures are osteopenic. The bony structures appear intact. The lung bases are clear as imaged. IMPRESSION: Nonobstructed abdominal bowel gas pattern. See above. Electronically signed by: Preet Celaya M.D. 07/23/2016 9:39 AM Dictated Date/Time: 07/23/2016 9:37 AM
== END 2016-07-23 16:55 | disposition home or self-care (01) | DRG 390 ==
LOC: ENRESERVTM → ENRESERVDT → C.EDB 11:42 → C.MS4W 13:27 → EDBEDREQ 13:37
PROVIDERS: ADMIT Hospitalist; ATTEND Hospitalist
DX: K56.41 Fecal impaction (principal); K52.9 Noninfective gastroenteritis and colitis, unspecified; D72.829 Elevated white blood cell count, unspecified; E03.9 Hypothyroidism, unspecified; J45.909 Unspecified asthma, uncomplicated; Z79.51 Long term (current) use of inhaled steroids; Z79.890 Hormone replacement therapy; Z79.899 Other long term (current) drug therapy

== ENCOUNTER → 2016-07-26 | Outpatient (CLI) | payer BC ==
[~2016-07-26] MED LIST changes: -DICY10CA12 PO; +ESTR10TA PV; +MCRK20 PO; -MINEOIL26 PO
[2016-07-26 17:38] LABS: BASO % 0.3 %; BASO ABS # 0.02 K/uL (0-0.2); COMPLETE YES; EOS % 2.4 %; HEMATOCRIT 39.6 % (37-47); IG% 0.3 %; LYMPH % 39.5 %; MEAN CELL VOLUME 86.8 fL (80-100); MEAN CORPUSCULAR HEMOGLOBIN 29.4 pg (25-34); MEAN CORPUSCULAR HGB CONC 33.8 g/dl (32-36); MEAN PLATELET VOLUME 9.5 fL (7.4-10.4); MONO % 9.9 %; NEUT % 47.6 %; PLATELET COUNT 374 K/uL (130-400); RED BLOOD COUNT 4.56 M/uL (4.2-5.4); WHITE BLOOD COUNT 7.08 K/uL (4.8-10.8)
[2016-07-26 18:11] LABS: ALT/SGPT 45 U/L (12-78); AST/SGOT 48 U/L (15-37); BLOOD UREA NITROGEN 9 mg/dl (7-18); BUN/CREATININE RATIO 12.7 (10-20); CALCIUM 9.4 mg/dl (8.5-10.1); CARBON DIOXIDE 27 mmol/L (21-32); CHLORIDE 103 mmol/L (98-107); CREATININE 0.73 mg/dl (0.60-1.20); GLUCOSE 92 mg/dl (70-99); POTASSIUM 4.2 mmol/L (3.5-5.1); SODIUM 138 mmol/L (136-145)
[2016-07-26 18:22] LABS: ALKALINE PHOSPHATASE 61 U/L (45-117); C-REACTIVE PROTEIN 2.02 mg/dl (0-0.29)
== END | disposition home or self-care (01) ==
LOC: C.LAB1850 17:05
PROVIDERS: ATTEND Registered Nurse
DX: K52.9 Noninfective gastroenteritis and colitis, unspecified (principal)

== ENCOUNTER → 2016-08-24 | Day surgery (SDC) | payer BC ==
[2016-08-17 14:34] VITALS: BMI 22.0
[~2016-08-24] VITALS: Ht 152.4 cm; Wt 51.4 kg
[~2016-08-24] MED LIST changes: +LIDOCAINE HCL 2% 2 ML VIAL (20MG/ML) ONE; +MIDAZOLAM HCL 1 MG/ML 2ML VIAL ONE; +ONDANSETRON INJ 2 MG/ML 2 ML VIAL ONE; +PROPOFOL IV EMULSION 10 MG/ML 20 ML VIAL IV ONE; +SODIUM CHLORIDE 0.9% 500ML 500 ML IV ONE
--- NOTE | 2016-08-24 09:04 | Endo History and Physical ---
History & Physical Date of Service: Aug 24, 2016. Chief Complaint: 65 yo CF who presents for colonoscopy secondary to abnormal CT scan with evidence of colitis. Referring Physician: Past Surgical History Hx Cardiac Surgery: No Hx Internal Defibrillator: No Hx Pacemaker: No Hx Abdominal Surgery: Yes (ETHAN, TUBAL LIGATION) Hx of Implantable Prosthesis: No Hx Post-Op Nausea and Vomiting: No Hx Cancer Surgery: No Hx Thoracic Surgery: No Hx Orthopedic: Yes (TRIGGER FINGER RELEASE) Hx Urinary Tract Surgery: No Family History None Social History Smoking Status: Never Smoker Hx Substance Use: No Hx Alcohol Use: Yes (OCCASIONALLY) Allergies Coded Allergies: No Known Allergies (Unverified , 08/17/16) Current Medications Reported Home Medications Medications Dose Route/Sig Max Daily Dose Days Date Category Miralax (Polyethylene Glycol 3350) 1 Pow Pow 34 Gm PO DAILY 07/23/16 Rx Klor-Con M20 (Potassium Chloride) 20 Meq Tabcr 20 Meq PO QAM 30 07/23/16 Rx Vagifem (Estradiol Vaginal) 10 Mcg Tab 1 Tab PV 2XWK 84 07/22/16 Reported Imitrex (Sumatriptan Succinate) 100 Mg Tab 100 Mg PO PRN PRN 07/19/16 Reported Os-Jong 500 Plus D (Calcium/Vitamin D) Tab 1 Tab PO QPM 07/19/16 Reported Multivitamin (Multivitamins) Tab 1 Tab PO QPM 07/19/16 Reported Levothyroxine Sodium 88 Mcg Tab 1 Tab PO QAM 90 07/19/16 Reported Symbicort 160/4.5 Inhaler (Budesonide/Formoterol Fumarate) Aero 2 Puffs INH BID 07/19/16 Reported Vital Signs Weight (Kilograms): 51.36 Height (Feet): 5 Height (Inches): 0 Physical Exam General Appearance: WD/WN, no apparent distress Respiratory/Chest: Auscultation: breath sounds normal Cardiovascular: Heart Auscultation: RRR Abdomen: Bowel Sounds: normal Inspection & Palpation: soft, non-distended, no tenderness, guarding & rebound Assessment and Plan Assessment: 65 yo CF who presents for colonoscopy secondary to abnormal CT scan with evidence of colitis. Plan: Proceed with colonoscopy.
[2016-08-24 09:09] VITALS: Ht 152.4 cm; Wt 51.4 kg
--- NOTE | 2016-08-24 09:45 | Discharge Instructions ---
Endoscopy Patient Instructions Date / Procedure(s) Performed Aug 24, 2016. Colonoscopy Allergy Information Coded Allergies: No Known Allergies (Unverified , 08/24/16) Discharge Date / Findings Aug 24, 2016. Colon polyps Internal hemorrhoids No evidence of colitis on this exam Medication Instructions OK to resume all medications today as prescribed. Reported Home Medications Medications Dose Route/Sig Max Daily Dose Days Date Category Miralax (Polyethylene Glycol 3350) 1 Pow Pow 34 Gm PO DAILY 07/23/16 Rx Klor-Con M20 (Potassium Chloride) 20 Meq Tabcr 20 Meq PO QAM 30 07/23/16 Rx Vagifem (Estradiol Vaginal) 10 Mcg Tab 1 Tab PV 2XWK 84 07/22/16 Reported Imitrex (Sumatriptan Succinate) 100 Mg Tab 100 Mg PO PRN PRN 07/19/16 Reported Os-Jong 500 Plus D (Calcium/Vitamin D) Tab 1 Tab PO QPM 07/19/16 Reported Multivitamin (Multivitamins) Tab 1 Tab PO QPM 07/19/16 Reported Levothyroxine Sodium 88 Mcg Tab 1 Tab PO QAM 90 07/19/16 Reported Symbicort 160/4.5 Inhaler (Budesonide/Formoterol Fumarate) Aero 2 Puffs INH BID 07/19/16 Reported Provider Instructions Activity Restrictions - No exercising or heavy lifting for 24 hours. - Do not drink alcohol the day of the procedure. - Do not drive a car or operate machinery until the day after the procedure. - Do not make any important decisions or sign important papers in 24 hours after the procedure. Following Day: - Return to full activity which may include returning to work/school. Diet Start your diet with liquids and light foods (jello, soup, juice, toast). Then eat your usual diet if not nauseated. Treatment For Common After Affects For mild abdominal pain, bloating, or excessive gas: - Rest - Eat lightly - Lie on right side Follow-Up Information Follow-up with DR. FLORES as scheduled Anesthesia Information What You Should Know You have had a procedure that required some medicine to reduce anxiety and discomfort. This treatment is called moderate sedation. After receiving the treatment, you may be sleepy, but you will be able to breathe on your own. The effects of the treatment may last for several hours. Follow these instructions along with Activity/Diet recommendations noted above: * Do NOT do anything where dizziness or clumsiness would be dangerous. * Rest quietly at home today, then you can be up and about tomorrow. * Have a responsible person stay with you the rest of today. * You may have had an I.V. today. If so, you may take the dressing off later today. Recommendations Call your doctor if: * Trouble breathing * Continuous vomiting for more than 24 hours * Temperature above 101 degrees * Severe abdominal pain or bloating * Pain not relieved by pain medicine ordered * There is increased drainage or redness from any incision * A large amount of rectal bleeding greater than 2-3 tablespoons. (If you had a polyp/s removed or have hemorrhoids, a small amount of blood - from the rectum is to be expected.) * You have any unanswered questions or concerns. IN THE EVENT OF A SERIOUS EMERGENCY, GO TO THE NEAREST EMERGENCY ROOM Your discharge instructions were prepared by provider Patrick Cartwright. Patient Instructions Signature Page Katja Goss Patient (or Guardian) Signature/Date: I have read and understand the instructions given to me by my caregivers. Caregiver/RN/Doctor Signature/Date: The above-named patient and/or guardian has received patient instructions on this date. + Original Patient Signature Page (only) stays with chart. Please make copy for patient.
--- NOTE | 2016-08-24 09:48 | GI REPORT ---
Procedure Date: 08/24/2016 9:27 AM Procedure: Colonoscopy Indications: Abnormal CT of the GI tract Medicines: Monitored Anesthesia Care Complications: No immediate complications. Estimated Blood Loss: Estimated blood loss: none. Procedure: Pre-Anesthesia Assessment: - Prior to the procedure, a History and Physical was performed, and patient medications and allergies were reviewed. The patient's tolerance of previous anesthesia was also reviewed. The risks and benefits of the procedure and the sedation options and risks were discussed with the patient. All questions were answered, and informed consent was obtained. Prior Anticoagulants: The patient has taken no previous anticoagulant or antiplatelet agents. ASA Grade Assessment: II - A patient with mild systemic disease. After reviewing the risks and benefits, the patient was deemed in satisfactory condition to undergo the procedure. After I obtained informed consent, the scope was passed under direct vision. Throughout the procedure, the patient's blood pressure, pulse, and oxygen saturations were monitored continuously. The scope was introduced through the anus and advanced to the terminal ileum. The colonoscopy was performed without difficulty. The patient tolerated the procedure well. The quality of the bowel preparation was good. The terminal ileum, ileocecal valve, appendiceal orifice, and rectum were photographed. Findings: Two sessile polyps were found in the cecum. The polyps were 4 to 7 mm in size. These polyps were removed with a hot snare. Resection and retrieval were complete. A 4 mm polyp was found in the descending colon. The polyp was sessile. The polyp was removed with a cold snare. Resection and retrieval were complete. Non-bleeding internal hemorrhoids were found during retroflexion. The hemorrhoids were small. Impression: - Two 4 to 7 mm polyps in the cecum, removed with a hot snare. Resected and retrieved. - One 4 mm polyp in the descending colon, removed with a cold snare. Resected and retrieved. - Non-bleeding internal hemorrhoids. Recommendation: - Resume previous diet. - Continue present medications. - Repeat colonoscopy for surveillance based on pathology results. - Return to primary care physician as previously scheduled. Patrick Cartwright DO 08/24/2016 9:47:16 AM This report has been signed electronically. Note Initiated On: 08/24/2016 9:27 AM I attest to the content of the Intraoperative Record and orders documented therein, exceptions below
--- NOTE | 2016-08-24 10:12 | Anesthesiology Progress Note ---
Anesthesia Post Op Note Date & Time Aug 24, 2016 at 10:11 Vital Signs Pain Intensity: 0 Vital Signs Past 12 Hours Date Time Temp Pulse Resp B/P Pulse Ox O2 Delivery O2 Flow Rate FiO2 08/24/16 10:02 81 20 95/57 100 Room Air 08/24/16 09:46 85 20 91/61 96 Room Air 08/24/16 09:17 36.7 88 20 129/79 99 Room Air Notes Mental Status: alert / awake / arousable, participated in evaluation Pt Amnestic to Procedure: Yes Nausea / Vomiting: adequately controlled Pain: adequately controlled Airway Patency, RR, SpO2: stable & adequate BP & HR: stable & adequate Hydration State: stable & adequate Anesthetic Complications: no major complications apparent
[2016-08-24 10:17] VITALS: BP 103/73; PULSE 72; O2SAT 99
== END | disposition home or self-care (01) ==
LOC: C.GI 08:52
PROVIDERS: ATTEND Internal Medicine
DX: D12.0 Benign neoplasm of cecum (principal); D12.4 Benign neoplasm of descending colon; K64.8 Other hemorrhoids; K59.00 Constipation, unspecified; Z79.899 Other long term (current) drug therapy

== ENCOUNTER → 2017-08-17 | Outpatient (CLI) | payer OTHER, MEDICARE ==
[~2017-08-17] MED LIST changes: -LIDOCAINE HCL 2% 2 ML VIAL (20MG/ML) ONE; -MIDAZOLAM HCL 1 MG/ML 2ML VIAL ONE; -ONDANSETRON INJ 2 MG/ML 2 ML VIAL ONE; -POLY335019 PO; -PROPOFOL IV EMULSION 10 MG/ML 20 ML VIAL IV ONE; -SODIUM CHLORIDE 0.9% 500ML 500 ML IV ONE
--- NOTE | 2017-08-21 08:08 | MAMMOGRAPHY REPORT ---
BILATERAL DIGITAL SCREENING MAMMOGRAM TOMOSYNTHESIS WITH CAD: 08/17/2017 TECHNIQUE: Breast tomosynthesis in addition to standard 2D mammography was performed. Current study was also evaluated with a Computer Aided Detection (CAD) system. COMPARISON: Comparison is made to exams dated: 12/03/2015 mammogram, 05/12/2014 mammogram - [facility], 10/15/2012 mammogram, 01/27/2011 mammogram, 12/15/2009 mammogram, and 08/19/2008 mammo gram - [facility] BREAST COMPOSITION: There are scattered areas of fibroglandular density in both breasts. FINDINGS: No suspicious masses, calcifications, or areas of architectural distortion are noted in ei ther breast. There has been no significant interval change compared to prior exams. Mildly prominent bilateral axillary lymph nodes appear stable compared to prior exams including the 2007 and 2008 exa ms. IMPRESSION: ACR BI-RADS CATEGORY 2: BENIGN There is no mammographic evidence of malignancy. A 1 year screening mammogram is recommended. The pa tient will receive written notification of the results. Approximately 10% of breast cancers are not detected with mammography. A negative mammographic report should not delay biopsy if a clinically suggestive mass is present. Palak Jeff M.D. /:08/17/2017 16:18:24 [employer] Athlete: Lea CARRANZA)(Ame), [facility] letter sent: Normal 1/2 BI-RADS Code: ACR BI-RADS Category 2: Benign
== END | disposition home or self-care (01) ==
LOC: C.MAMM 15:27
PROVIDERS: ATTEND Obstetrics & Gynecology
DX: Z13.820 Encounter for screening for osteoporosis (principal); Z12.31 Encounter for screening mammogram for malignant neoplasm of breast; M85.89 Other specified disorders of bone density and structure, multiple sites

== ENCOUNTER 2024-09-10 12:07 | Observation (INO) ==
[2024-09-10] MEDS: SODIUM CHLORIDE 0.9% 1,000 ML IV ONE (12:33)
--- NOTE | 2024-09-10 12:41 | Emergency Department Note ---
Impression & Plan Dizziness, Vomiting, Stroke-like symptoms ED Provider Note NAME: NITO ZELAYA AGE: 73 SEX: F : 1950 ARRIVES VIA: Walk-In INFORMANT: [Patient] ED PROVIDER(S): [Preet Urbano MD] CHIEF COMPLAINT: Vertigo HISTORY OF PRESENT ILLNESS: The patient is a 73-year-old female who presents to the ER with 4 days of symptoms. The patient flew from [place] to [place] Monday evening. Monday and Monday she had some dizzy spells and some feelings of being off balance. The spells would come and go. Yesterday, the spell lasted quite a bit longer, it was present upon awakening and was present for most of the day. There was some nausea. Today, when she woke, she had a lot of dizziness and she felt the world was moving around. She did start to vomit. She feels off balance to walk. No arm or leg weakness, no difficulty thinking, no speech change. The patient does have a history of migraines and she feels she may be developing a slight headache. No cough or cold, no shortness of breath. No history of CVA or vertigo. She does not take blood thinning agents. The patient went to her doctor's office, she was referred to our ER. PMHx/PSHx/Social Hx: See Below PHYSICAL EXAM: GENERAL: Patient is in no acute distress. HEENT: No acute trauma, normocephalic atraumatic, mucous membranes moist, no nasal congestion. Pupils equal and reactive to light. No nystagmus. TMs clear bilaterally. NECK: No stridor, no adenopathy, no meningismus, trachea is midline. LUNGS: Clear to auscultation bilaterally, no wheeze, no rhonchi, breath sounds equal. HEART: Without murmurs gallops or rubs, regular rate and rhythm. ABDOMEN: Soft, nontender, no peritonitis. EXTREMITIES: No cyanosis, full range of motion of all the joints without pain or difficulty. NEUROLOGIC: Oriented x 3, no acute motor or sensory deficits, no focal weakness. No cerebellar deficits, speech slur, extremity drift or facial droop. SKIN: No jaundice, no diaphoresis. DIFFERENTIAL DIAGNOSIS: Vertigo, CVA, UTI, electrolyte imbalance, among others. EMERGENCY DEPARTMENT PROCEDURES: MEDICAL DECISION MAKING: There is no leukocytosis or worrisome anemia. There is a normal platelet count. No coagulopathy. No renal failure or significant electrolyte abnormality. No concerning liver enzyme elevation. ECG shows a sinus rhythm, no dysrhythmia or acute ischemia. Cardiac enzyme testing x 1 was not consistent with acute cardiac injury. Urinalysis showed some ketones consistent with some dehydration, no infection. Brain CT showed no acute bleed or mass effect. CT angio of the head and neck were without findings of stroke or significant stenosis. Brain MRI showed small vessel disease but no acute CVA, no mass. On exam, there were no focal neurologic findings however, the patient was extremely dizzy and very nauseated. She had a hard time with any movement. The patient was given IV saline, 1 L. She was given IV Zofran, a second dose of IV Zofran was given. She received IV Benadryl, IV Decadron, IV Tylenol. She was given a dose of oral meclizine. Despite the above interventions, the patient is still very dizzy and is having a hard time with any movement. She does appear to have vertigo based on her workup but, is in no condition to be discharged home. I spoke with the patient and her family, I spoke with case management, the on- call hospitalist was consulted. Prior/Outside records/notes reviewed: Today's outpatient family practice note describing her presentation, their concerns and the need for an ED referral. ECG per my interpretation: Indication was possible stroke. The ECG shows a sinus rhythm with a PVC. The rate is 89. There is some nonspecific ST change. There is no ST elevation, QTc was 438. Continuous Cardiac Monitoring per my interpretation: An order was placed for continuous cardiac monitoring. The monitor shows a rate of 87 with normal sinus rhythm. Imaging/x-ray results per my interpretation: Chronic Medical/Social conditions affecting care: Advanced age. Care/Management discussed with: Case management, the on-call hospitalist. Level of care consideration(s): After review of the information above and other included data: --I believe the patient requires escalation of care to admission DISPOSITION: Admission Past Med/Surg History Problem List (Updated 09/10/24 @ 18:07 by Preet Urbano MD) Stroke-like symptoms (Acute) Vomiting (Acute) Dizziness (Acute) Impacted cerumen Osteopenia Constipation Asthma (Chronic) Medical History Colitis, nonspecific Internal hemorrhoids Tubular adenoma of colon Prolapse of vaginal wall with midline cystocele Atrophic vaginitis Surgical History History of colonoscopy History of tubal ligation History of wisdom tooth extraction History of tonsillectomy History of hand surgery History of laparoscopy History of hysterectomy History of dilatation and curettage Family History Father Larynx cancer Hearing loss Brother Hearing loss Sister Hearing loss Mother Stroke Father Stroke Other No family history of adverse response to anesthesia No family history of bleeding disorder Denies family history of Colorectal cancer Social History Smoking Status: Never smoker Do You Dip or Chew Tobacco: No; Hx Alcohol Use: Yes Alcohol Intake Frequency: 2-4 x/Month Hx Substance Use: No Preferred Language: Mosotho current occupational status: retired current occupation: Retired ENT Feels Safe at Home: Yes Allergies Allergies Allergy/AdvReac Type Severity Reaction Status Date / Time No Known Drug Allergies Allergy Verified 10/24/23 13:16 Home Meds Home Medications Medication Instructions Recorded Confirmed calcium 600 mg (as 1 cap PO DAILY 05/14/19 09/10/24 carbonate)-vitamin D3 5 mcg (200 unit) capsule albuterol sulfate 90 mcg/actuation 2 puff inhalation QID PRN Wheezing 09/10/24 09/10/24 aerosol inhaler budesonide-formoterol HFA 160 2 puff inhalation BID 09/10/24 09/10/24 mcg-4.5 mcg/actuation aerosol inhaler (Symbicort) ibandronate 150 mg tablet 150 mg PO MONTHLY 09/10/24 09/10/24 levothyroxine 88 mcg tablet 88 mcg PO DAILY 09/10/24 09/10/24 mdrkiqoy-yey-tcps-FA-Ca carb-vit K 1 tab PO DAILY 09/10/24 09/10/24 18 mg iron-400 mcg-500 mg tablet rosuvastatin 10 mg tablet 10 mg PO DAILY 09/10/24 09/10/24 Previous Rx's Medication Instructions Recorded estradiol 10 mcg vaginal tablet See Rx Instructions .Route 05/22/24 .COMPLEX #24 tabs Results & Data (ED) Vital Signs Vital Signs - 24 hr 09/10/24 12:11 09/10/24 12:17 09/10/24 13:12 Temperature 36.6 C Temperature Source Temporal Artery Scan Pulse Rate 87 88 Pulse Rate [Left Finger] 85 Pulse Rhythm [Left Finger] Pulse Strength [Left Finger] Respiratory Rate 17 20 Respiratory Effort / Characteristics Non-Labored Spontaneous Respiratory Depth Normal Respiratory Pattern Regular Blood Pressure 161/86 H Blood Pressure [Right Arm] 183/101 H Blood Pressure Mean 111 Blood Pressure Mean [Right Arm] 128 Blood Pressure Position Sitting Blood Pressure Position [Right Arm] Sitting Pulse Oximetry 98 98 Oxygen Delivery Method Room Air Sepsis Recent Fever Within 48 Hours No Sepsis New/Unexplained Change in Mental Status No Sepsis Action Taken by Nursing No Action Required 09/10/24 14:33 09/10/24 16:00 Temperature Temperature Source Pulse Rate Pulse Rate [Left Finger] 93 H 94 H Pulse Rhythm [Left Finger] Regular Pulse Strength [Left Finger] Normal Respiratory Rate 20 16 Respiratory Effort / Characteristics Non-Labored Spontaneous Respiratory Depth Normal Respiratory Pattern Regular Blood Pressure Blood Pressure [Right Arm] 154/97 H 136/94 Blood Pressure Mean Blood Pressure Mean [Right Arm] 116 108 Blood Pressure Position Blood Pressure Position [Right Arm] Lying Pulse Oximetry 98 92 Oxygen Delivery Method Room Air Sepsis Recent Fever Within 48 Hours Sepsis New/Unexplained Change in Mental Status Sepsis Action Taken by [facility] Medications Current Medication List: was personally reviewed by me Laboratory Data Attestation: I reviewed the patient's lab results. 09/10/24 12:34 09/10/24 12:34 Lab Results 09/10/24 09/10/24 Range/Units 12:34 13:55 WBC 8.03 (4.8-10.8) K/ul RBC 4.91 (4.20-5.40) M/uL Hgb 14.0 (12.0-16.0) g/dl Hct 42.2 (37.0-47.0) % MCV 85.9 (80.0-100.0) fL MCH 28.5 (25.0-34.0) pg MCHC 33.2 (32.0-36.0) g/dL RDW Std Deviation 39.9 (36.4-46.3) fL RDW Coeff of Melissa 12.9 (11.5-14.5) % Plt Count 269 (130-400) K/uL MPV 9.7 (9.4-12.4) fL Immature Gran % (Auto) 0.1 % Neut % (Auto) 75.3 % Lymph % (Auto) 21.9 % [place] % (Auto) 2.4 % Eos % (Auto) 0.1 % Baso % (Auto) 0.2 % Neut # (Auto) 6.04 (1.40-6.50) K/uL Lymph # (Auto) 1.76 (1.20-3.40) K/uL [place] # (Auto) 0.19 (0.11-0.59) K/uL Eos # (Auto) 0.01 (0.00-0.50) K/uL Baso # (Auto) 0.02 (0.00-0.20) K/uL Immature Gran # (Auto) 0.01 (0.01-0.20) K/uL PT 10.7 (9.0-12.0) Seconds INR 1.0 (0.9-1.1) APTT 26 (21-31) Seconds PTT Ratio 1.0 Sodium 139 (136-145) mmol/L Potassium 3.7 (3.5-5.1) mmol/L Chloride 105 (98-107) mmol/L Carbon Dioxide 27 (21-32) mmol/L Anion Gap 7 (3-11) BUN 14 (6-23) mg/dl Creatinine 0.67 (0.6-1.2) mg/dl Est Cr Clr Drug Dosing 61.7 ml/min eGFR 92.81 BUN/Creatinine Ratio 20.9 H (10-20) Glucose 119 H (70-99(Fasting)) mg/dl Calcium 9.8 (8.6-10.3) mg/dl Magnesium 1.8 (1.7-2.4) mg/dl Total Bilirubin 0.6 (0.2-1.0) mg/dl AST 23 (13-39) U/L ALT 20 (7-52) U/L Alkaline Phosphatase 55 (34-104) U/L Troponin I High Sens 4.1 (0-14) pg/ml Total Protein 7.8 (6.0-8.3) gm/dl Albumin 4.5 (3.4-5.0) gm/dl Globulin 3.3 (2.5-4.0) gm/dl Albumin/Globulin Ratio 1.4 (0.9-2) Urine Color Yellow Urine Appearance Clear (Clear) Urine pH 7.5 (4.5-7.5) Ur Specific [place] 1.024 (1.000-1.030) Urine Protein Negative (Negative) Urine Glucose (UA) Negative (Negative) Urine Ketones 1+ H (Negative) Urine Blood Negative (Negative) Urine Nitrite Negative (Negative) Urine Bilirubin Negative (Negative) Urine Urobilinogen Negative (Negative) Ur Leukocyte Esterase Negative (Negative) Administered Medications Discontinued Medications Dexamethasone Sodium Phosphate (DexamethasonePf 10 Mg/Ml Vial) 4 mg IV NOW ONE Stop: 09/10/24 12:33 Last Admin: 09/10/24 12:53 Dose: 4 mg Documented By: WILBUR Diphenhydramine HCl (Diphenhydramine 50 Mg/Ml Vial) 12.5 mg IV NOW STA Stop: 09/10/24 12:33 Last Admin: 09/10/24 12:52 Dose: 12.5 mg Documented By: WILBUR Gadobutrol (Gadobutrol 65ml Vial) 6 ml IV ONCE ONE Stop: 09/10/24 16:53 Last Admin: 09/10/24 16:53 Dose: 6 ml Documented By: ARJUN Sodium Chloride (Nss) 1,000 mls @ 999 mls/hr IV .Q1H1M ONE Stop: 09/10/24 13:19 Last Infusion: 09/10/24 13:34 Dose: Infused Documented By: Admin: 09/10/24 12:33 Dose: 999 mls/hr Documented By: WILBUR Acetaminophen (Ofirmev) 1,000 mg in 100 mls @ 400 mls/hr IV NOW STA Stop: 09/10/24 12:46 Last Infusion: 09/10/24 13:08 Dose: Infused Documented By: Admin: 09/10/24 12:53 Dose: 400 mls/hr Documented By: WILBUR Ioversol (Optiray 320 125ml) 112 ml IV ONCE ONE Stop: 09/10/24 13:35 Last Admin: 09/10/24 13:34 Dose: 112 ml Documented By: EVON Meclizine HCl (Meclizine Hcl 25 Mg Tab) 25 mg PO NOW STA Stop: 09/10/24 17:35 Last Admin: 09/10/24 17:39 Dose: 25 mg Documented By: KELLY Ondansetron HCl (Ondansetron Inj 2 Mg/Ml 2 Ml Vial) 4 mg IV NOW STA Stop: 09/10/24 12:33 Last Admin: 09/10/24 12:53 Dose: 4 mg Documented By: WILBUR Ondansetron HCl (Ondansetron Inj 2 Mg/Ml 2 Ml Vial) 4 mg IV NOW STA Stop: 09/10/24 16:19 Last Admin: 09/10/24 16:21 Dose: 4 mg Documented By: MELYSSA Ondansetron HCl (Ondansetron Inj 2 Mg/Ml 2 Ml Vial) Confirm Administered Dose 4 mg .ROUTE .STK-MED ONE Stop: 09/10/24 16:20 Last Admin: 09/10/24 16:24 Dose: Not Given Documented By: MELYSSA Imaging Data Radiologist's Impression: Head CT 09/10/24 12:19 CT head/brain wo con CLINICAL HISTORY: 73 years-old Female with neuro deficit, acute stroke suspected. Acute stroke like symptoms TECHNIQUE: Multiple axial CT images of the head were obtained without contrast. A dose lowering technique was utilized adhering to the principles of ALARA. COMPARISON: CTA head of same day FINDINGS: No acute intracranial hemorrhage, midline shift, intracranial mass, hydrocephalus, territorial ischemia or abnormal extra-axial collection. And involutional changes with white matter hypodensities suggestive of probable chronic microvascular ischemic disease. The calvarium is intact. The paranasal sinuses, mastoid air cells, and middle ear cavities are clear. IMPRESSION: No acute intracranial abnormality. ACT 112: Negative or not required by law. The above report was generated using voice recognition software. It may contain grammatical, syntax or spelling errors. Electronically signed by: Flakito Ellington M.D. 09/10/2024 2:14 PM Head CTA 09/10/24 12:19 CT angio neck with con, CT angio head w con CLINICAL HISTORY: neuro deficit, acute stroke suspected. COMPARISON STUDY: Noncontrast head CT earlier today TECHNIQUE: Following the IV administration of 112 of Optiray, CT angiogram of the neck and brain was performed from the aortic arch to the skull base. Images are reviewed in the axial, sagittal, and coronal planes. 3-D MIPS images are created and assessed. IV contrast was administered without complication. All measurements were calculated based on NASCET criteria. A dose lowering technique was utilized adhering to the principles of ALARA. CT DOSE: 983.09 mGy.cm FINDINGS: There are carotid bulb calcifications. Bilateral common and internal carotid arteries show no significant narrowing or occlusion. The right vertebral artery is dominant. The left vertebral artery is diminutive and especially diminutive beyond PICA, anatomic variant. No significant narrowing or occlusion seen at the vertebral arteries. Basilar artery is diminutive but patent and does not supply the posterior cerebral arteries. The anterior, middle, and posterior cerebral arteries are patent bilaterally. There is origin of the posterior cerebral arteries bilaterally. Cerebral venous sinuses opacify normally. There is moderate degenerative change at the cervical spine. IMPRESSION: 1. 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 2. No significant arterial narrowing or occlusion seen at the neck or brain. ACT 112: Negative or not required by law. The above report was generated using voice recognition software. It may contain grammatical, syntax or spelling errors. Electronically signed by: Zay Lam M.D. 09/10/2024 2:05 PM Neck CTA 09/10/24 12:19 CT angio neck with con, CT angio head w con CLINICAL HISTORY: neuro deficit, acute stroke suspected. COMPARISON STUDY: Noncontrast head CT earlier today TECHNIQUE: Following the IV administration of 112 of Optiray, CT angiogram of the neck and brain was performed from the aortic arch to the skull base. Images are reviewed in the axial, sagittal, and coronal planes. 3-D MIPS images are created and assessed. IV contrast was administered without complication. All measurements were calculated based on NASCET criteria. A dose lowering technique was utilized adhering to the principles of ALARA. CT DOSE: 983.09 mGy.cm FINDINGS: There are carotid bulb calcifications. Bilateral common and internal carotid arteries show no significant narrowing or occlusion. The right vertebral artery is dominant. The left vertebral artery is diminutive and especially diminutive beyond PICA, anatomic variant. No significant narrowing or occlusion seen at the vertebral arteries. Basilar artery is diminutive but patent and does not supply the posterior cerebral arteries. The anterior, middle, and posterior cerebral arteries are patent bilaterally. There is origin of the posterior cerebral arteries bilaterally. Cerebral venous sinuses opacify normally. There is moderate degenerative change at the cervical spine. IMPRESSION: 1. 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 2. No significant arterial narrowing or occlusion seen at the neck or brain. ACT 112: Negative or not required by law. The above report was generated using voice recognition software. It may contain grammatical, syntax or spelling errors. Electronically signed by: Zay Lam M.D. 09/10/2024 2:05 PM Brain MRI 09/10/24 14:28 MRI BRAIN WITH and WITHOUT CONTRAST TECHNIQUE: An MRI examination of the brain was performed utilizing sagittal and axial T1-weighted images as well as axial T2-weighted, FLAIR, gradient echo and diffusion-weighted images. Postcontrast T1-weighted images were also acquired in axial and sagittal planes. IV CONTRAST: 8 mL of Gadavist was intravenously administered. INDICATION: Dizziness COMPARISON: None FINDINGS: The ventricular, sulcal and cisternal spaces are normal in caliber. There is no evidence of intracranial mass lesion, hydrocephalus, infarct, extra-axial fluid collection, restricted diffusion or parenchymal hemorrhage. There is no suspicious parenchymal or extra-axial enhancement. Moderate periventricular and subcortical T2/FLAIR hyperintensities. The cerebellar tonsils are normal in position. The pituitary gland is not enlarged. The major arterial vascular structures of the skull base are patent. No intraorbital soft tissue mass lesion is observed. Mild mucosal thickening of the paranasal sinuses. IMPRESSION: No acute intracranial process is detected. No suspicious intracranial enhancement is seen. Moderate periventricular and subcortical T2/FLAIR hyperintensities. This has a distribution that could suggest underlying demyelinating disease (multiple sclerosis). Please clinically correlate. In the absence of such history, the findings would proably represent chronic microvascular ischemic changes. Electronically signed by Aristides Gonzalez 09-10-2024 5:20 PM Discharge Plan Visit Data Chief Complaint: Vertigo Stated Complaint: DIZZINESS ED Provider: Preet Urbano Discharge Problem: Dizziness, Vomiting, Stroke-like symptoms Patient Disposition: Admitted As Inpatient Condition: Fair Forms Stand Alone Forms: [facility] [employer] Prescriptions Prescriptions: No Action estradiol 10 mcg tablet See Rx Instructions .ROUTE .COMPLEX Qty: 24 2RF Dose Instruction: INSERT 1 TABLET VAGINALLY EVERY OTHER DAY Rx Instructions: INSERT 1 TABLET VAGINALLY EVERY OTHER DAY calcium carbonate-vitamin D3 600 mg calcium- 200 unit capsule 1 cap PO DAILY ibandronate 150 mg tablet 150 mg PO MONTHLY albuterol sulfate 90 mcg/actuation HFA aerosol inhaler 2 puff INHALATION QID PRN (Reason: Wheezing) levothyroxine 88 mcg tablet 88 mcg PO DAILY rosuvastatin 10 mg tablet 10 mg PO DAILY budesonide-formoterol [Symbicort] 160-4.5 mcg/actuation HFA aerosol inhaler 2 puff INHALATION BID Women's Multivitamin 18 mg iron-400 mcg-500 mg Tablet 1 tab PO DAILY Referrals Referrals: Manuel Sanon MD [Primary Care Provider] - Discharge Problem: Vomiting Qualifiers: Vomiting type: unspecified Nausea presence: with nausea Qualified Code(s): R 11.2 - Nausea with vomiting, unspecified
[2024-09-10 12:52] LABS: Basophils # (auto) 0.02 K/uL (0.00-0.20); Basophils % (auto) 0.2 %; Eosinophils # (auto) 0.01 K/uL (0.00-0.50); Eosinophils % (auto) 0.1 %; Hematocrit (blood only) 42.2 % (37.0-47.0); Immature Granulocytes # (auto) 0.01 K/uL (0.01-0.20); Immature Granulocytes % (auto) 0.1 %; Lymphocytes # (auto) 1.76 K/uL (1.20-3.40); Lymphocytes % (auto) 21.9 %; Mean Corpuscular Hemoglobin 28.5 pg (25.0-34.0); Mean Corpuscular Hgb Conc 33.2 g/dL (32.0-36.0); Mean Corpuscular Volume 85.9 fL (80.0-100.0); Mean Platelet Volume 9.7 fL (9.4-12.4); Monocytes # (auto) 0.19 K/uL (0.11-0.59); Monocytes % (auto) 2.4 %; Neutrophils # (auto) 6.04 K/uL (1.40-6.50); Neutrophils % (auto) 75.3 %; Platelet Count 269 K/uL (130-400); RDW Coefficient of Variation 12.9 % (11.5-14.5); RDW Standard Deviation 39.9 fL (36.4-46.3); Red Blood Count 4.91 M/uL (4.20-5.40); White Blood Count 8.03 K/ul (4.8-10.8)
[2024-09-10] MEDS: diphenhydrAMINE 50 MG/ML VIAL IV STA (12:52)
[2024-09-10] MEDS: ONDANSETRON INJ 2 MG/ML 2 ML VIAL IV STA ×2 (12:53→16:21)
[2024-09-10] MEDS: dexAMETHasone**PF** 10 MG/ML VIAL IV ONE (12:53)
[2024-09-10] MEDS: ACETAMINOPHEN 1,000 MG/100 ML VIAL IV STA (12:53)
[2024-09-10 13:10] LABS: Alanine Aminotransferase 20 U/L (7-52); Albumin Globulin Ratio 1.4 (0.9-2); Albumin Level 4.5 gm/dl (3.4-5.0); Alkaline Phosphatase 55 U/L (34-104); Anion Gap 7 (3-11); Aspartate Aminotransferase 23 U/L (13-39); BUN Creatinine Ratio 20.9 (10-20); Bilirubin,Total 0.6 mg/dl (0.2-1.0); Blood Urea Nitrogen 14 mg/dl (6-23); Calcium 9.8 mg/dl (8.6-10.3); Carbon Dioxide 27 mmol/L (21-32); Chloride 105 mmol/L (98-107); Creatinine Clr Calc Pharmacy 61.7 ml/min; Globulin 3.3 gm/dl (2.5-4.0); Glucose 119 mg/dl (70-99(Fasting)); Magnesium 1.8 mg/dl (1.7-2.4); Potassium 3.7 mmol/L (3.5-5.1); Sodium 139 mmol/L (136-145); Total Protein 7.8 gm/dl (6.0-8.3)
[2024-09-10 13:16] LABS: Troponin I High Sensitivity 4.1 pg/ml (0-14)
[2024-09-10 13:22] LABS: Partial Thromboplastin Time 26 Seconds (21-31); Prothrombin Time 10.7 Seconds (9.0-12.0)
[2024-09-10] MEDS: OPTIRAY 320 125ml IV ONE (13:34)
--- NOTE | 2024-09-10 14:07 | CT Scan Report ---
CT angio neck with con, CT angio head w con CLINICAL HISTORY: neuro deficit, acute stroke suspected. COMPARISON STUDY: Noncontrast head CT earlier today TECHNIQUE: Following the IV administration of 112 of Optiray, CT angiogram of the neck and brain was performed from the aortic arch to the skull base. Images are reviewed in the axial, sagittal, and cor onal planes. 3-D MIPS images are created and assessed. IV contrast was administered without complicat ion. All measurements were calculated based on NASCET criteria. A dose lowering technique was utiliz ed adhering to the principles of ALARA. CT DOSE: 983.09 mGy.cm FINDINGS: There are carotid bulb calcifications. Bilateral common and internal carotid arteries show no significant narrowing or occlusion. The right vertebral artery is dominant. The left vertebral art amado is diminutive and especially diminutive beyond PICA, anatomic variant. No significant narrowing o r occlusion seen at the vertebral arteries. Basilar artery is diminutive but patent and does not supp ly the posterior cerebral arteries. The anterior, middle, and posterior cerebral arteries are patent bilaterally. There is origin of the posterior cerebral arteries bilaterally. Cerebral venous si nuses opacify normally. There is moderate degenerative change at the cervical spine. IMPRESSION: 1. 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 2. No significant arterial narrowing or occlusion seen at the neck or brain. ACT 112: Negative or not required by law. The above report was generated using voice recognition software. It may contain grammatical, syntax o r spelling errors. Electronically signed by: Zay Lam M.D. 09/10/2024 2:05 PM
--- NOTE | 2024-09-10 14:15 | CT Scan Report ---
CT head/brain wo con CLINICAL HISTORY: 73 years-old Female with neuro deficit, acute stroke suspected. Acute stroke like symptoms TECHNIQUE: Multiple axial CT images of the head were obtained without contrast. A dose lowering tech nique was utilized adhering to the principles of ALARA. COMPARISON: CTA head of same day FINDINGS: No acute intracranial hemorrhage, midline shift, intracranial mass, hydrocephalus, territorial ischem ia or abnormal extra-axial collection. And involutional changes with white matter hypodensities sugge stive of probable chronic microvascular ischemic disease. The calvarium is intact. The paranasal sinuses, mastoid air cells, and middle ear cavities are clear . IMPRESSION: No acute intracranial abnormality. ACT 112: Negative or not required by law. The above report was generated using voice recognition software. It may contain grammatical, syntax o r spelling errors. Electronically signed by: Flakito Ellington M.D. 09/10/2024 2:14 PM
[2024-09-10 14:21] LABS: Appearance Urine Clear (Clear); Bilirubin Urine Negative (Negative); Blood Urine Negative (Negative); Color Urine Yellow; Glucose Urine UA Negative (Negative); Ketones Urine 1+ (Negative); Leukocyte Esterase Urine Negative (Negative); Nitrite Urine Negative (Negative); Protein Urine Negative (Negative); Specific Gravity Urine 1.024 (1.000-1.030); Urobilinogen Urine Negative (Negative); pH Urine 7.5 (4.5-7.5)
[2024-09-10] MEDS: ONDANSETRON INJ 2 MG/ML 2 ML VIAL ONE (16:24)
[2024-09-10] MEDS: GADOBUTROL 65ML VIAL IV ONE (16:53)
--- NOTE | 2024-09-10 17:21 | Magnetic Resonance Report ---
MRI BRAIN WITH and WITHOUT CONTRAST TECHNIQUE: An MRI examination of the brain was performed utilizing sagittal and axial T1-weighted images as well as axial T2-weighted, FLAIR, gradient echo and diffusion-weighted images. Postcontrast T1-weighted images were also acquired in axial and sagittal planes. IV CONTRAST: 8 mL of Gadavist was intravenously administered. INDICATION: Dizziness COMPARISON: None FINDINGS: The ventricular, sulcal and cisternal spaces are normal in caliber. There is no evidence of intracranial mass lesion, hydrocephalus, infarct, extra-axial fluid collection, restricted diffusion or parenchymal hemorrhage. There is no suspicious parenchymal or extra-axial enhancement. Moderate periventricular and subcortical T2/FLAIR hyperintensities. The cerebellar tonsils are normal in position. The pituitary gland is not enlarged. The major arterial vascular structures of the skull base are patent. No intraorbital soft tissue mass lesion is observed. Mild mucosal thickening of the paranasal sinuses. IMPRESSION: No acute intracranial process is detected. No suspicious intracranial enhancement is seen. Moderate periventricular and subcortical T2/FLAIR hyperintensities. This has a distribution that could suggest underlying demyelinating disease (multiple sclerosis). Please clinically correlate. In the absence of such history, the findings would proably represent chronic microvascular ischemic changes. Electronically signed by Aristides Gonzalez 09-10-2024 5:20 PM
[2024-09-10] MEDS: MECLIZINE HCL 25 MG TAB PO STA (17:39)
--- NOTE | 2024-09-10 17:39 | Electrocardiogram Report ---
Test Reason : Blood Pressure : */* mmHG Vent. Rate : 89 BPM Atrial Rate : 89 BPM P-R Int : 142 ms QRS Dur : 86 ms QT Int : 360 ms P-R-T Axes : 61 22 25 degrees QTcB Int : 438 ms Sinus rhythm with occasional Premature ventricular complexes Possible Left atrial enlargement Nonspecific ST abnormality Abnormal ECG When compared with ECG of 25-Jan-2021 14:57, Premature ventricular complexes are now Present Nonspecific T wave abnormality now evident in Inferior leads Confirmed by Manuel García ([id number]) on 09/10/2024 5:39:13 PM Referred By: REFERRED SELF Confirmed By: Manuel García
--- NOTE | 2024-09-10 17:50 | History & Physical Report ---
Date of Service September 10, 2024 Assessment & Plan (1) Stroke-like symptoms: Plan: Severe vertigo,? Labyrinthitis versus BPPV Patient with several days of initially mild intermittent vertigo, now very severe worsened with getting up and movement of head position suspicious for BPPV No cold-like symptoms. [place]-Hallpike on the right with a few beats of nystagmus which extinguished. Minoo x 2 without improvement of symptoms. Suspect viral labyrinthitis CThead, CTAhead neck without acute abnormalities. 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 Moderate periventricular and subcortical T2/FLAIR. No prior history of demyelinating disease, CRP is normal. Suspected to be due to chronic m icrovascular ischemic change. 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 She denies any vision change/diplopia but feels that her gait is limited due to severe spinning. No vision change. Hypoplasia is bilateral --> + aspirin 81mg Continue symptomatic treatment for vertigo. Dexamethasone 2 mg given for total dose of 6 mg. Continue meclizine 25 mg every 6 hours, Zofran for nausea. Can add 1 dose of 1 mg Ativan versus 5 mg Valium if needed for severe symptoms. If persistent and no improvement --> consult neuro Return home not appropriate this time due to the severity of symptoms and is a to assist to the bathroom due to the degree of dizziness when standing/moving her head PT/OT following Hyperlipidemia Continue statin Hypertension Patient with tachycardia and hypertension proportional to her degree of symptoms. Following Minoo maneuver was tachycardic in the low 100s and blood pressure increased to 170s. Prior blood pressure 130s and pulse 90s. Would avoid treating reactive blood pressure, will treat symptoms with medications as above. If persistent despite symptom control and SBP greater than 180 can use labetalol IV. No signs of PRESS on MRI Tachycardia Suspect reactive to symptoms. Improves when patient feels less symptomatic. She has no hypoxia, pleuritic pain, shortness of breath, leg swelling, or leg edema to suggest DVT/PE. DVT prophylaxis: Lovenox Diet: Regular Disposition: M/T for labetalol availability and tachycardia monitoring CODE STATUS: Full code (2) Vomiting: (3) Dizziness: History of Present Illness Primary Care Provider: Manuel Sanon MD Katja reports she lives in [place] but flew back from [place] monday night. Monday and Monday had 2 episodes of brief dizziness Monday was dizzy and nauseus for several hours. Ninole better in the evening Woke up this morning and was worse than ever, threw up multiple times, and cannot walk 'really really dizzy.' Room is spinning and wobbling. When she closer her eyes the room spins. No presyncope, but has felt like she was lightheaded and balance is gone. No strength loss. All balance. Feels a little weak all over from being tired NO speech deficits. No aphasia. No numbness or tingling in arms, legs, or face NO recent illness No cough, congesiton, or cold like symptoms. Her reports two weeks ago had an injury to her RIGHT lower leg which bled profusely "sprayed the wall'. Not sure what happened, but nicked it while sitting somehow. NO chest pain, no chest pressure. No shortness of breath. No pain on inspiration. No leg swelling, no calf pain NO vision changes, no diplopia Medical History: Reviewed Medications: Reviewed Surgical History: Reviewed Family history: Reviewed Allergies: Reviewed Social History: no tobacco. social etoh use, no daily use Code Status: Full Allergies Allergy/AdvReac Type Severity Reaction Status Date / Time No Known Drug Allergies Allergy Verified 10/24/23 13:16 Home Medications Medication Instructions Recorded Confirmed Type calcium 600 mg (as 1 cap PO DAILY 05/14/19 09/10/24 History carbonate)-vitamin D3 5 mcg (200 unit) capsule estradiol 10 mcg vaginal tablet See Rx Instructions .Route 05/22/24 09/10/24 Rx .COMPLEX #24 tabs albuterol sulfate 90 mcg/actuation 2 puff inhalation QID PRN Wheezing 09/10/24 09/10/24 History aerosol inhaler budesonide-formoterol HFA 160 2 puff inhalation BID 09/10/24 09/10/24 History mcg-4.5 mcg/actuation aerosol inhaler (Symbicort) ibandronate 150 mg tablet 150 mg PO MONTHLY 09/10/24 09/10/24 History levothyroxine 88 mcg tablet 88 mcg PO DAILY 09/10/24 09/10/24 History udnulesr-jfr-xocp-FA-Ca carb-vit K 1 tab PO DAILY 09/10/24 09/10/24 History 18 mg iron-400 mcg-500 mg tablet rosuvastatin 10 mg tablet 10 mg PO DAILY 09/10/24 09/10/24 History meclizine 25 mg tablet 25 mg PO Q6H PRN vertigo #120 tabs 09/11/24 Rx Past Med/Surg History Problem List Stroke-like symptoms (Acute) Vomiting (Acute) Dizziness (Acute) Impacted cerumen Osteopenia Constipation Asthma (Chronic) Medical History Colitis, nonspecific Internal hemorrhoids Tubular adenoma of colon Prolapse of vaginal wall with midline cystocele Atrophic vaginitis Surgical History History of colonoscopy History of tubal ligation History of wisdom tooth extraction History of tonsillectomy History of hand surgery History of laparoscopy with fulguration of oviducts History of hysterectomy History of dilatation and curettage Family History Father Larynx cancer Hearing loss Brother Hearing loss Sister Hearing loss Mother Stroke Father Stroke Other No family history of adverse response to anesthesia No family history of bleeding disorder Denies family history of Colorectal cancer Social History Smoking Status: Never smoker Do You Dip or Chew Tobacco: No; Hx Alcohol Use: Yes Alcohol type: wine Alcohol Intake Frequency: 2-4 x/Month Hx Substance Use: No Preferred Language: Azeri Communication Ability: Effective 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 NAD. Cooperative. Appears ill but nontoxic. HEENT: Atraumatic, normocephalic. Vision and hearing grossly intact Pulm: CTAB A&P. -wheezes, -rales, -rhonchi. Symmetrical chest rise. No increased work of breathing. No respiratory distress. Cardiac: RRR, -mrg. Radial pulses intact and symmetrical. Abdominal: Nontender, nondistended, soft. BS present. Special testing: [place]-Hallpike on the right with induction of brief nystagmus which extinguished after 45 beats. No improvement following Minoo CRANIAL NERVES: II: Pupils equal and reactive, no relative afferent pupillary defect, no VF cuts III, IV, : EOM intact, no gaze preference or deviation, no nystagmus. V: normal sensation in V1, V2, and V3 segments bilaterally VII: no asymmetry, no nasolabial fold flattening VIII: normal hearing to speech IX, X: normal palatal elevation, no uvular deviation XI: 5/5 head turn and 5/5 shoulder shrug bilaterally XII: midline tongue protrusion MOTOR: RUE: 5/5 Shoulder internal rotation, external rotation, flexion, extension, abduction, adduction 5/5 Elbow flexion/extension, wrist flexi on/extension 5/5 field consultant strength, finger flexion/extens ion, interosseus LUE: 5/5 Shoulder internal rotation, external rotation, flexion, extension, abduction, adduction 5/5 Elbow flexion/extension, wrist flexi on/extension 5/5 field consultant strength, finger flexion/extens ion, interosseus RLE: 5/5 to hip flexion, knee flexion/extensi on, ankle dorsiflexion/plantarflexion LLE: 5/5 to hip flexion, knee flexion/extensi on, ankle dorsiflexion/plantarflexion SENSORY: Normal to touch in upper and lower extremities without deficit or asymmetry Results & Data Results & Data Vital Signs (Past 12 Hours) Vital Signs Temp Pulse Pulse Resp BP BP Pulse Ox 09/10/24 16:00 94 H 16 136/94 92 09/10/24 14:33 93 H 20 154/97 H 98 09/10/24 13:12 88 09/10/24 12:17 85 20 183/101 H 98 09/10/24 12:11 36.6 C 87 17 161/86 H 98 O2 Del Method 09/10/24 16:00 Room Air 09/10/24 14:33 09/10/24 13:12 09/10/24 12:17 09/10/24 12:11 Room Air PG Care Time/CCT Total # of Minutes Spent Total Time Spent with Patient: Total time spent is greater than 50% in coordination of care (as documented) at patient's floor/unit and/or counseling patient: Coding Level of Care Code 30820 INT INP/OBS CARE 375MIN Diagnoses Stroke-like symptoms R29.90 Vomiting R11.2 Nausea presence: with nausea Vomiting type: unspecified Dizziness R42 (2) Vomiting Nausea presence: with nausea Vomiting type: unspecified Qualified Code(s): R11.2 - Nausea with vomiting, unspecified
[2024-09-10 18:15] LABS: C Reactive Protein < 0.50 mg/dl (0-0.5)
[2024-09-10] MEDS ORDERED: ACETAMINOPHEN 500 MG TAB PO PRN (18:36)
[2024-09-10] MEDS: LACTATED RINGER'S 1,000 ML IV SCH (18:36)
[2024-09-10] MEDS ORDERED: LORazepam 2 MG/1 ML VIAL IV PRN (18:36)
[2024-09-10] MEDS ORDERED: MECLIZINE HCL 25 MG TAB PO PRN (18:36)
[2024-09-10] MEDS ORDERED: LABETALOL HCL IV 5 MG/ML 20ML IV PRN (18:42)
[2024-09-10] MEDS: DEXAMETHASONE SOD INJ 4 MG/ML VIAL IV STA (18:44)
[2024-09-10] MEDS: ASPIRIN 81 MG ECTAB PO SCH (18:44)
--- OUTSIDE RECORDS SUMMARY | 2024-09-10 20:24 | External Medical Summary | Continuity of Care Document ---
Author Name Unknown Organization [id number] Address [address] [place] [phone] Care Team Providers Care Building Insulation Installer Name Role Phone Manuel Sanon Primary Care Physician [phone] [id number] Date(s): 08/01/24 - 08/01/24 [facility] 0 [employer] [facility] [address] [place] [id number] Encounter Diagnosis Left foot pain(Discharge Diagnosis) - 08/01/24 Hammertoe of left foot(Discharge Diagnosis) - 08/01/24 Hallux valgus of left foot(Discharge Diagnosis) - 08/01/24 Arthritis of left foot(Discharge Diagnosis) - 08/01/24 Discharge Disposition: Home or Self Care Attending Physician: REGINALDO Miranda Christina L Referring Physician: MD Sanon Christopher Encounter Type: Clinic Allergies, Adverse Reactions, Alerts No Known Allergies Assessment and Plan Extracted from: Title:Orthopaedics Office Visit Note Author:Yeyo Rice DPM, Christina L Date:08/01/24 1. Left foot pain Discussed today with patient that I do feel topical Voltaren gel intermittently used before or after her exercise would be helpful prescribed today. Exercise includes walking and bicycling which I do feel she may continue. We discussed the need for shoes with a wide soft toe box that would be supportive and discussed various types of sandals with good arch support that would be appropriate. Discussed the pain should worsen should contact my office and would recommend an anti-inflammatory steroid injection which was recommended to be deferred today because there was essentially no pain on physical evaluation. And as a last resort could consider surgery would need to have updated bone scan due to her history of osteoporosis. Recommend follow-up in 4 to 5 months. I spent 8 minute planning including prepping note and chart review. I spent 23 minute [id number] interaction with patient addressing issues discussed in visit today. I spent 9 minute time in postop visit planning including note finishing in depart process. Total time spent on patient visit 40 minutes. 2. Hammertoe of left foot 3. Hallux valgus of left foot 4. Arthritis of left foot Immunizations Given and Recorded Vaccine Date Status Refusal Reason SARS COVID Vaccine Unspecified 11/16/22 Recorded SARS-CoV-2 mRNA (Pfizer 12+) bivalent 1 11/16/22 R ecorded influenza virus vaccine, inactivated 06/13/22 Give n influenza virus vaccine, inactivated 01/25/21 Give n influenza virus vaccine, inactivated 05/30/18 Give n SARS-CoV-2 (COVID-19) mRNA-1273 vaccine 2 10/06/21 Recorded SARS-CoV-2 (COVID-19) mRNA-1273 vaccine 03/17/21 R ecorded SARS-CoV-2 (COVID-19) mRNA-1273 vaccine 3 07/02/20 Recorded SARS-CoV-2 (COVID-19) mRNA-1273 vaccine 4 06/04/20 Recorded zoster vaccine, inactivated 5 01/10/19 Recorded zoster vaccine, inactivated 09/04/18 Recorded pneumococcal 23-valent vaccine 05/30/18 Given pneumococcal 13-valent vaccine 6 05/19/17 Recorded tetanus/diphtheria/pertuss, acel (Tdap) 11/09/15 Mona escalera 1Result Comment: [facility] 2Result Comment: 2021-12-01: Historical information-source unspecified 3Result Comment: 2023-04-17: Historical information-source unspecified 4Result Comment: 2020-10-26: Historical information-source unspecified 5Result Comment: [01/14/2019] [employer] 6Result Comment: 2018-06-14: Historical information-source unspecified Mental Status 08/01/24 Barriers to Learning one year None evide nt Mandatory Health Literacy Documentation Yes Health Literacy Communication Barriers N ever Primary Language Occitan Problem List Condition Confirmation Course Effective Dates Status H ealth Status Informant Anxiety Confirmed Active Arthritis of left foot Confirmed Active Diverticulosis Confirmed Active Left foot pain Confirmed Active Hallux valgus of left foot Confirmed Active Hammertoe of left foot Confirmed Active History of adenomatous polyp of colon Confirmed 08/19/21 Active Hyperlipidemia Confirmed Active Hypothyroid Confirmed Active Internal hemorrhoids Confirmed Active Migraine Confirmed Active Osteoporosis Confirmed Active Skin lesion Confirmed Active Mild persistent asthma without complication Confirmed Active Diagnosis Diagnosis Type Effective Dates Health Status Cl inical Service Informant Hallux valgus of left foot Discharge Diagnosis 08/01/24 Non-Specified Left foot pain Discharge Diagnosis 08/01/24 Non-Specified Hammertoe of left foot Discharge Diagnosis 08/01/24 Non-Specified Arthritis of left foot Discharge Diagnosis 08/01/24 Non-Specified Procedures Procedure Date Related Diagnosis Body Site Status Diagnostic mammogram 12/21/23 Comp leted Mammography 1 12/28/21 Completed Colonoscopy 2, 3 08/19/21 Complete d Chest X-ray 4 04/13/21 Completed X-ray 5 10/26/20 Completed Bone scan 10/01/20 Completed Mammogram 6, 7 09/10/20 Completed Colonoscopy 8, 9 08/24/16 Complete d Gastric biopsy 10 08/24/[address] of abdomen and pelvis wit h contrast 11 07/21/[address] of abdomen and pelvis 12 07/19/16 Completed KUB X-ray 13 07/19/16 Completed Mammogram 14 12/04/15 Completed Colonoscopy 15 05/13/14 Completed Colonoscopy 05/01/07 Completed D&C - Dilatation and curettage Completed Tonsillectomy Completed Trigger finger 16 Complet ed Tubal ligation Completed 1There is no mammographic evidence of malignancy. A 1 year screening mammogram is recommended. 2COLO to cecum, AC polyp 3 mm CF, sigmoid polyp 2mm CF, diverticulosis 35 year follow up 4Impression: No acute process. 5No fracture or dislocation within the right shoulder 6Impression: There is no mammographic evidence of malignancy. A 1 year screening mammogram is recommended. 7There is no mammographic evidence of malignancy 8Repeat in five years. 9Two 4-7mm ppolyps in the cecum, removed with a hot snare, resected and retrieved One 4mm polyp in the decending colon, removed with a cold scare. Resected and retrieved Non-bleeding internal hemorrhoids Repeat colonoscopy for surveillance based on pathology results 10a. colon, descending, polypectomy: tubular adenoma b. cecum, polypectomies: fragments of tubular adenoma 111. There is moderate to severe constipation throughout the distended colon, and there is evidence of a nonspecific colitis. This is greatest in the left colon and likely represents stercoral colitis.Clinical correlation will be required. This has worsened from 07/19/2016. 2. A small volume of free fluid in the pelvis is likely on a reactive basis. 3. Additional findings as above. 121. no definite bowel wall thickening or obstruvction 2, normal appendix 3. moderate to large amound of well formed stool seen within thecolon 13modaerative fecal retention. no conventrional radiograhpic evidence of bowel obstruction. 14no evidence of malignancy. repeat in 1 year 15COLO to cecum mild sigmoid diverticulosis repeat 10 years recommended 16x 4 Social History Social History Type Response Smoking Status Never smoked cigaret desi Sex Female Sex Representation Female (finding) Ortho Outpt Note * REGINALDO Miranda, Martha Pena: PERFORM Event Display: Ortho Outpt Note Authored Date: [id number] Primary Care Provider MD Sanon Christopher Chief Complaint left foot issues, 4th digit pain with unsupported shoes and first digit pain. pain with acitvity History of Present Illness Patient is a very pleasant 73-year-old female presenting today for an initial evaluation of left foot issues fourth digit pain with unsupported shoes and first digit pain with activity PCP–[facility] last seen July 22, 2024. Past medical history–osteoporosis hypothyroidism hyperlipidemia paresthesia asthma. Surgical history colonoscopy D&C tonsillectomy tubal trigger finger. Medications–reviewed. Allergies–none. Social history–denies smoking positive for alcohol use denies substance abuse denies tobacco use. Family history–cancer heart attack hypertension lung disease and stroke Review of Systems No pertinent positives Physical Exam Problem focused left foot: Dorsalis pedis pulse palpable 2 out of 4, posterior tibial pulse palpable 2 out of 4, capillary refill time less than 3 seconds, skin turgor is good to all digits of the left foot pedal hair present. Gross sensation intact to all digits of the left foot. Skin is clean and dry there are no open wounds or lesions present on the left foot. History of a mild to moderate hallux valgus deformity which for the most part only has very intermittent tenderness, deformity is reducible to neutral there is very mild erythema surrounding the dorsal medial exostosis in general this area is nontender extensor hallucis longus is intact has occasional intermittent pain after prolonged use. There is no crepitus felt with active range of motion. Left foot fourth toe with a semiflexible hammertoe almost a claw toe deformity there is no associated callus pain and again pain itself is intermittent in nature there is a small contracture at proximal and distal interphalangeal joints without residual tenderness. Overall left foot has a decreased arch height with a flexible pes planus foot type without pain along the Achilles tendon. X-ray dictation 3 views left foot: 3 views of the left foot show irregularity of the medial sesamoid bone with arthritic change at left first metatarsal phalangeal joint sesamoids deviated laterally into the first interspace appears to be a bipartite medial sesamoid. Irregularity notableat third metatarsal shaft may be consistent with old stress reaction. Lateral view of the left foot shows minimal midfoot arthritis likely os trigonum incidental finding superior calcaneal heelspur. And obliterated sinus tarsi. I personally performed the interpretation of 3 views of the left foot. Assessment/Plan 1. Left foot pain Discussed today with patient that I do feel topical Voltaren gel intermittently used before or after her exercise would be helpful prescribed today. Exercise includes walking and bicycling which I do feel she may continue. We discussed the need for shoes with a wide soft toe box that would be supportive and discussed various types of sandals with good arch support that would be appropriate. Discussed the pain should worsen should contact my office and would recommend an anti-inflammatory steroid injection which was recommended to be deferred today because there was essentially no pain on physical evaluation. And as a last resort could consider surgery would need to have updated bone scan due to her history of osteoporosis. Recommend follow-up in 4 to 5 months. I spent 8 minute planning including prepping note and chart review. I spent 23 minute [id number] interaction with patient addressing issues discussed in visit today. I spent 9 minute time in postop visit planning including note finishing in depart process. Total time spent on patient visit 40 minutes. 2. Hammertoe of left foot 3. Hallux valgus of left foot 4. Arthritis of left foot Problem List/Past Medical History Ongoing Anxiety Arthritis of left foot Diverticulosis Hallux valgus of left foot Hammertoe of left foot History of adenomatous polyp of colon Hyperlipidemia Hypothyroid Internal hemorrhoids Left foot pain Migraine Mild persistent asthma without complication Osteoporosis Skin lesion Resolved Constipation in female Lateral epicondylitis Right shoulder pain Tenosynovitis, de Quervain Procedure/Surgical History •Diagnostic mammogram| Service Date: 12/21/2023•Mammography| Service Date: 12/28/2021•Colonoscopy| Service Date: 08/19/2021•Chest X-ray| Service Date: 04/13/2021•X-ray| Service Date: 10/26/2020•Bone scan| Service Date: 10/01/2020•Mammogram| Service Date: 09/10/2020•Gastric biopsy| Service Date: 08/24/2016•Colonoscopy| Service Date: 08/24/2016•CT of abdomen and pelvis with contrast| Service Date: 07/21/2016•KUB X-ray| Service Date: 07/19/2016•CT of abdomen and pelvis| Service Date: 07/19/2016•Mammogram| Service Date: 12/04/2015•Colonoscopy| Service Date: 05/13/2014•Colonoscopy| Service Date: 05/01/2007 Trigger finger Tubal ligation Tonsillectomy D&C - Dilatation and curettage Medications albuterol(albuterol CFC free 90 mcg/inh MDI), 2 puff, inhaled, qid, PRN, 11 refills budesonide-formoterol(Symbicort 160 mcg-4.5 mcg/inh inhalation aerosol), 2 puff, inhaled, bid ciclopirox topical(Penlac Nail Lacquer 8% topical solution), 1 appl, topical, Daily, 3 refills diclofenac topical(Voltaren 1% topical gel), 1 appl, topical, qid, PRN estradiol topical(Yuvafem 10 mcg vaginal tablet), 10 mcg= 1 tab, vaginal, qhs, 1 refills ibandronate(ibandronate 150 mg oral tablet), See Instructions, 2 refills levothyroxine(levothyroxine 88 mcg (0.088 mg) oral tablet), 88 mcg= 1 tab, PO, Daily, 4 refills multivitamin, 1 tab, PO, Daily polyethylene glycol 3350(MiraLax oral powder for reconstitution), See Instructions rosuvastatin(rosuvastatin 10 mg oral tablet), 10 mg= 1 tab, PO, Daily, 4 refills SUMAtriptan(SUMAtriptan 100 mg oral tablet), See Instructions, 3 refills unknown medication(CALCIUM CITRATE), 400 mg Allergies NKA Social History Smoking Status Never smoked cigarettes Alcohol - Low Risk Use:Current Type:Wine Frequency:1-2 times per week Average drinks per episode in last year:1 Exercise - Regular exercise Substance Abuse - Denies Substance Abuse Tobacco - Denies Tobacco Use Family History Cancer: Father. Heart attack: PGF. Hypertension: Father. Lung disease...: Father. Stroke: Mother and Father. Health Status Family Member(s) Immunizations Vaccine Date Status SARS COVID Vaccine Unspecified 11/16/2022 Recorded SARS-CoV-2 mRNA (Pfizer 12+) bivalent 11/16/2022 Recorded Comments : [facility] influenza virus vaccine, inactivated 06/13/2022 Given SARS-CoV-2 (COVID-19) mRNA-1273 vaccine 10/06/2021 Recorded Comments : 2021-12-01: Historical information-source unspecified SARS-CoV-2 (COVID-19) mRNA-1273 vaccine 03/17/2021 Recorded influenza virus vaccine, inactivated 01/25/2021 Given SARS-CoV-2 (COVID-19) mRNA-1273 vaccine 07/02/2020 Recorded Comments : 2023-04-17: Historical information-source unspecified SARS-CoV-2 (COVID-19) mRNA-1273 vaccine 06/04/2020 Recorded Comments : 2020-10-26: Historical information-source unspecified zoster vaccine, inactivated 01/10/2019 Recorded Comments : [01/14/2019] Shingrix zoster vaccine, inactivated 09/04/2018 Recorded pneumococcal 23-valent vaccine 05/30/2018 Given influenza virus vaccine, inactivated 05/30/2018 Given pneumococcal 13-valent vaccine 05/19/2017 Recorded Comments : 2018-06-14: Historical information-source unspecified tetanus/diphtheria/pertuss, acel (Tdap) 11/09/2015 Given Recommendations Health Maintenance Pending (in the next year) OverDue Adult Influenza Vaccine due 10/30/23 and every 1 year Due Adult Social Determinants of Health Screening due 08/01/24 Unknown Frequency Hepatitis C Screening due 08/01/24 One-time only Seasonal COVID 19 Vaccine due 08/01/24 Unknown Frequency Due In Future Medicare Annual Wellness Visit not due until 07/22/25 and every 1 year Body Mass Index not due until 07/23/25 and every 366 day Satisfied (in the past 1 year) Satisfied Body Mass Index on 07/22/24. Satisfied by BECCA Velez [place] Breast Cancer Screening on 05/24/24. Satisfied by JULIUS Mortensen [facility] Lipid Screening on 05/21/24. Satisfied by Contributor[employer]system, [employer] Annual Wellness Visit on 07/22/24. Satisfied by MD Sanon Christopher Electronic Signature on File Electronically Reviewed/Signed by: Martha Miranda DPM Author Signature Dt/Tm:08/01/2024 08:51 AM Division of Sports Medicine CLR Patient Care team information Care Team Personnel Name: MD Sanon Christopher Position: Physician - Family Med Member Role: Lifetime Relationship Address: [address] [place] [address] Telecom: [phone] Care Team Related Persons Name: ONEIDA ZELAYA Insurance Providers Guarantor name: NITO ZELAYA Health Plan Information #: 1 Payer: MEDICARE Member Number: [id number] Policy Number: NA Group Number: NA Health Plan Information #: 2 Payer: [employer] Member Number: [id number] Policy Number: NA Group Number: NA Health Plan Information #: 3 Payer: [employer] Member Number: [id number] Policy Number: NA Group Number: NA"
[2024-09-10] MEDS: KETOROLAC TROMETHAMINE 15 MG/ML VIAL IV ONE (21:13)
[2024-09-10] MEDS ORDERED: ALBUTEROL HFA 8 GM INHALER INH PRN (22:13)
[2024-09-10] MEDS ORDERED: POLYETHYLENE (MIRALAX) 17 GM PACK PO PRN (22:13)
[2024-09-10] MEDS: ENOXAPARIN INJ 40 MG/0.4 ML SYR SQ SCH (22:42)
[2024-09-11 05:56] LABS: Basophils # (auto) 0.01 K/uL (0.00-0.20); Basophils % (auto) 0.1 %; Hematocrit (blood only) 39.8 % (37.0-47.0); Hemoglobin 13.5 g/dl (12.0-16.0); Immature Granulocytes # (auto) 0.04 K/uL (0.01-0.20); Immature Granulocytes % (auto) 0.3 %; Lymphocytes % (auto) 20.4 %; Mean Corpuscular Hgb Conc 33.9 g/dL (32.0-36.0); Mean Corpuscular Volume 85.6 fL (80.0-100.0); Monocytes # (auto) 0.46 K/uL (0.11-0.59); Monocytes % (auto) 3.7 %; Neutrophils # (auto) 9.26 K/uL (1.40-6.50); Neutrophils % (auto) 75.5 %; Platelet Count 271 K/uL (130-400); RDW Coefficient of Variation 12.7 % (11.5-14.5); RDW Standard Deviation 39.8 fL (36.4-46.3); Red Blood Count 4.65 M/uL (4.20-5.40); White Blood Count 12.27 K/ul (4.8-10.8)
[2024-09-11] MEDS: LEVOTHYROXINE SODIUM 88 MCG TABLET PO SCH (06:07)
[2024-09-11 06:13] LABS: BUN Creatinine Ratio 20.6 (10-20); Calcium 9.4 mg/dl (8.6-10.3); Potassium 3.7 mmol/L (3.5-5.1)
[2024-09-11 07:43] VITALS: RESP 17; O2SAT 96
[2024-09-11] MEDS: ROSUVASTATIN CALCIUM 10 MG TAB PO SCH (08:16)
[2024-09-11 10:51] VITALS: BP 156/83; PULSE 87; TEMP 99
[2024-09-11] MEDS ORDERED: PANTOprazole 40 MG/10 ML SYR IV ONE (15:34)
[2024-09-11] MEDS: ONDANSETRON INJ 2 MG/ML 2 ML VIAL IV PRN (15:37)
--- NOTE | 2024-09-11 15:45 | Discharge Summary ---
Discharge Summary Date of Service September 11, 2024 Principal Dx & Hospital Course #1 = Principal Diagnosis (1) Stroke-like symptoms: 73 years old female with PMH of FULL CODE @ home, hyperlipidemia on rosuvastatin 10mg PO daily, hypothyroidism on synthroid 88ug PO daily, who was placed in OBSERVATION on the hospitalist service @ [facility] on 09/10/2024 with benign paroxysmal positional vertigo (BPPV). The following medical issues were addressed while the patient remained in [facility] from 09/10/2024 to 09/11/2024: 1. Severe vertigo. Due to BPPV, which in turn, is probably due to acute viral infection/syndrome. Patient with several days of initially mild intermittent vertigo, now very severe and worsened on getting up and movement of head position to the left or right, which is suspicious for BPPV No cold-like symptoms. Sujata-Hallpike on the right with a few beats of nystagmus which extinguished. 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 MRI brain with/without contrast (09/10/2024, 2:28pm): Moderate periventricular and subcortical T2/FLAIR. No prior history of demyelinating disease, CRP is normal. Suspected to be due to chronic microvascular ischemic change. 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 She denies any vision change/diplopia but feels that her gait is limited due to severe spinning. No vision change. Hypoplasia is bilateral. Continue symptomatic treatment for vertigo. Dexamethasone 2 mg given for total dose of 6 mg. Continue meclizine 25 mg every 6 hours prn vertigo; protonix 40mg IV x 1 dose (09/11/2024, 3:34pm). D/C back to home is NOT appropriate or safe on 09/11/2024, due to the severity of symptoms and patients requires two-person assist to the bathroom due to the degree of dizziness/vertigo when standing/moving her head Patient was subsequently discharged on 09/11/2024 to [facility] for short-term vestibular rehab therapy Hyperlipidemia Continue home-scheduled rosuvastatin 10mg PO daily Hypertension Patient with tachycardia and hypertension proportional to her degree of symptoms. Following Minoo maneuver was tachycardic in the low 100s and blood pressure increased to 170s on observation date 09/10/2024. Patient has a resting HR 87 bpm and a resting BP 156/83 (09/11/2024, 1:30pm) on discharge on 09/11/2024 to [facility] for short-term vestibular rehab therapy. Tachycardia Suspect reactive to symptoms. Improves when patient feels less symptomatic. She has no hypoxia, pleuritic pain, shortness of breath, leg swelling, or leg edema to suggest DVT/PE. DVT prophylaxis: Lovenox Diet: Regular Disposition: M/T for labetalol availability and tachycardia monitoring CODE STATUS: Full code (2) Vomiting: (3) Dizziness: Admission HPI Per Admitting Provider Katja reports she lives in [place] but flew back from [place] monday night. Monday and Monday had 2 episodes of brief dizziness Monday was dizzy and nauseus for several hours. [place] better in the evening Woke up this morning and was worse than ever, threw up multiple times, and cannot walk 'really really dizzy.' Room is spinning and wobbling. When she closer her eyes the room spins. No presyncope, but has felt like she was lightheaded and balance is gone. No strength loss. All balance. Feels a little weak all over from being tired NO speech deficits. No aphasia. No numbness or tingling in arms, legs, or face NO recent illness No cough, congesiton, or cold like symptoms. Her reports two weeks ago had an injury to her RIGHT lower leg which bled profusely "sprayed the wall'. Not sure what happened, but nicked it while sitting somehow. NO chest pain, no chest pressure. No shortness of breath. No pain on inspiration. No leg swelling, no calf pain NO vision changes, no diplopia Medical History: Reviewed Medications: Reviewed Surgical History: Reviewed Family history: Reviewed Allergies: Reviewed Social History: no tobacco. social etoh use, no daily use Code Status: Full Discharge Exam Constitutional General: Comfortable, coherent, cooperative. Wide awake and alert. Not confused, lethargic, or obtunded. Patient speaks in complete, fluent, and articulate sentences without pause, cough, or wheeze, with O2 sat 96% on room air (09/11/2024, 1:30pm). HEENT: Normocephalic, atraumatic. Extra-ocular muscles intact. Pupils equally round and reactive to light. No nystagmus, gaze paresis, anisocoria, miosis, mydriasis, hyphema, scleral injection, conjunctivitis, or pterygium. No otorrhea or rhinorrhea. No pharyngeal erythema, edema, or discharge. Neck: Supple, no stridor, bruit, goiter, or hepato-jugular reflux. Jugular venous pressure is estimated to be 3 cm above the sternal angle of Peterson, which in turn, is 5 cm above the level of the right atrium; with jugular venous pressure estimated to be 8 cm, then, there is no jugular venous distention on 09/11/2024. Lymphatics: No cervical (anterior/posterior), supraclavicular, infraclavicular, axillary, epitrochlear, or inguinal adenopathy. Chest: Symmetric rise and fall with respirations. Non-tender to palpation. Lungs: Clear to auscultation and percussion. No audible expiratory wheeze, egophony, pectoriloquy, increase in tactile fremitus, or flatness/dullness to percussion at the bases. Heart: Regular rate and rhythm. S1 and S2 noted. No S3 or S4 summation gallop. No tripartite friction rub. Grade II/ early systolic murmur @ LLSB without radiation to the carotids, axilla, or back, and which remains invariant in regards to the respiratory cycle. Abdomen: Soft, non-tender, non-distended. No rebound, guarding, Duffy's sign, or organomegaly. Bowel sounds auscultated in all 4 quadrants. Extremities: No clubbing, cyanosis, or edema. 2+ pedal pulses bilaterally. Skin: No decubitus ulcer, exanthem, or enanthem. Genito-urinary: No urethral discharge. No brunson catheter. Neurology: Alert and oriented in regards to person, place, time, and situation. DTR+ and symmetric. 5/5 motor strength in all 4 extremities, both p roximally and distally. No pronator drift. No facial droop. No dysarthria. Psychiatry: No homicidal ideation. No suicidal ideation. No flat affect; smiles appropriately Discharge Plan Discharge Items Patient Disposition: Transfer Group Home Fac Reason For Visit: VERTIGO Discharge Diagnosis: BPPV Condition on Discharge: Fair Activity: Resume your previous activity Lifting: Gradually increase as tolerated Bathing: No limitations Sexual Activity: When tolerated Exercise/Sports: None Driving/Machine Use: No limitations Weightbearing: Full weightbearing Non-emergency contact: Primary Care Provider Call non-emergency contact if: you have any medication questions Follow-up/Referrals: Manuel Sanon MD [Primary Care Provider] - Diet: Heart Healthy Addtl Attending Provider Instructions: See your PCP Dr. Manuel Sanon within 5 days of hospital discharge. Pending Studies at Discharge: No Stand-Alone Forms: My [facility] [employer] Skilled Items Patient informed of condition?: Yes DNR: No Discharge Level of Care: Skilled Communicable Disease: No Discharge Prognosis: Stable Lines: None Urinary Catheter: No Medications and DC Order Prescriptions: New meclizine 25 mg Tablet 25 mg PO Q6H PRN (Reason: vertigo) Qty: 120 0RF Continued estradiol 10 mcg tablet See Rx Instructions .ROUTE .COMPLEX Qty: 24 2RF Dose Instruction: INSERT 1 TABLET VAGINALLY EVERY OTHER DAY Rx Instructions: INSERT 1 TABLET VAGINALLY EVERY OTHER DAY calcium carbonate-vitamin D3 600 mg calcium- 200 unit capsule 1 cap PO DAILY ibandronate 150 mg tablet 150 mg PO MONTHLY albuterol sulfate 90 mcg/actuation HFA aerosol inhaler 2 puff INHALATION QID PRN (Reason: Wheezing) levothyroxine 88 mcg tablet 88 mcg PO DAILY rosuvastatin 10 mg tablet 10 mg PO DAILY budesonide-formoterol [Symbicort] 160-4.5 mcg/actuation HFA aerosol inhaler 2 puff INHALATION BID [id number] carb-vit K 18 mg iron-400 mcg-500 mg Tablet 1 tab PO DAILY Discharge Orders: Discharge Order (Routine); Ordered 09/11/24 Ordered By: Naldo Lujan Admission Data Admit Date/Time: 09/10/24 18:41 Attending Provider: Naldo Lujan Admit Provider: Ronnie Gunderson Primary Care Provider: Manuel Sanon Other Providers: Naif Degroot; Ronnie Gunderson; [facility] Hospital Stay Data Consultations 09/10/24 17:35 ED Decision to Admit Stat 09/10/24 17:39 ED Decision to Admit Stat Diagnostic Imagining Performed 09/10/24 12:19 CT angio head w con Stat CT angio neck with con Stat CT head/brain wo con Stat 09/10/24 14:28 MR brain wo/w con Stat Pending Results Patient Have Any Pending Studies at Discharge: No Discharge Instructions Given to Patient (Per Discharging Provider) See your PCP Dr. Manuel Sanon within 5 days of hospital discharge. Total Time Total Time Spent Total Time Spent (In Minutes): 35 minutes. Of this time period, 19 minutes were spent in coordinating patient's discharge. Coding Level of Care Code 39546 INP/OBS DISCH >30 MIN Diagnoses Stroke-like symptoms R29.90 Vomiting R11.2 Nausea presence: with nausea Vomiting type: unspecified Dizziness R42
== END 2024-09-11 15:55 ==
LOC: ED 12:07 → 4W 12:07 → SUATTDRO 18:41 → 4W 22:25